=== PATIENT | female | born 1975 | race Caucasian/White ===

== ENCOUNTER 2016-10-31 14:38 | Emergency (ER) | payer OTHER ==
[2016-10-31] MEDS ORDERED: NS 0.9% 1000 ML* 2,000 ML IV ONE (16:25)
[2016-10-31] MEDS ORDERED: Aspirin Low Dose CHEW TAB* 81 MG PO ONE (16:25)
--- NOTE | 2016-10-31 17:07 | RAD ---
Indication: Chest pain. 2 views of the chest demonstrate no mediastinal shift. Heart is of normal size and configuration. Lung fitch demonstrate no pleural fluid, pneumonia or pneumothorax. IMPRESSION: No active cardiopulmonary disease is noted.
[2016-10-31 17:19] LABS: Urine Bilirubin Negative (Negative); Urine Glucose Negative (Negative); Urine Nitrite Negative (Negative)
[2016-10-31 17:26] VITALS: BP 157/94
[2016-10-31 17:26] LABS: Hematocrit 47 % (35-47); Hemoglobin 15.7 g/dl (12.0-16.0); Mean Corpuscular HGB Conc 33 g/dl (31-36); Mean Corpuscular Hemoglobin 28 pg (27-31); Mean Corpuscular Volume 85 fL (80-97); Mean Platelet Volume 8 um3 (7.4-10.4); Red Blood Count 5.54 10^6/ul (4.0-5.4); Red Cell Distribution Width 14 % (10.5-15); White Blood Count 8.9 10^3/ul (3.5-10.8)
[2016-10-31 17:42] LABS: ALT 24 U/L (7-52); AST 28 U/L (13-39); Albumin 4.9 g/dL (3.2-5.2); Alkaline Phosphatase 71 U/L (34-104); Anion Gap 8 mmol/L (2-11); BUN/Creatinine Ratio 19.7 (8-20); Blood Urea Nitrogen 14 mg/dL (6-24); C Reactive Protein 6.24 mg/L (< 5.00); CO2 Carbon Dioxide 29 mmol/L (22-32); Calcium 10.3 mg/dL (8.6-10.3); Chloride 100 mmol/L (101-111); Creatine Kinase 143 U/L (10-223); EGFR African American 116.1 (>60); EGFR Non-African American 90.3 (>60); Globulin 3.3 g/dL (2-4); Glucose 83 mg/dL (70-100); Lipase 21 U/L (11.0-82.0); Potassium 3.6 mmol/L (3.5-5.0); Sodium 137 mmol/L (133-145); Total Protein 8.2 g/dL (6.4-8.9)
--- NOTE | 2016-10-31 17:54 | RAD ---
Indication: Headache. Comparison: May 22, 2016 CT. Technique: Noncontrast CT vertex of skull through foramen magnum. Report: The sulci, ventricles, and basal cisterns are normal for age. Espinosa matter white matter differentiation is preserved without evidence for edema. No intra or extra axial hemorrhage, mass, or fluid collection detected. Unremarkable visualized orbital contents. Unremarkable calvarium and skull base. Unremarkable scalp. The visualized paranasal sinuses and mastoid air spaces are clear. IMPRESSION: Negative unenhanced head CT.
[2016-10-31 18:10] LABS: TSH (Thyroid Stimulating Horm) 3.07 mcIU/mL (0.34-5.60)
--- NOTE | 2016-10-31 18:52 | ED ---
Lenard Villeda Karl, scribed for Aurelio Guerrero MD on 10/31/16 at 1645 . HPI Chest Pain - HPI Summary HPI Summary: Pt is a 41 y/o female that presents to the ED c/o CP. Pt reported that she has had a MONTGOMERY for the past 4 days and last night began having CP that went away but it returned during work this morning. Pt stated that her pain is a sharp pain in her left anterior chest and radiates through to her back, rating it as a 7/ 10 at its worst and a 3/10 currently. Pt also reported mild SOB and nausea, and that her pain is aggravated by stress. Pt also stated that she has been experiencing frequent urination since this morning and that she started Lipitor 3 days ago. Pt denied dysuria, diaphoresis, leg pain, wheezing, fever, chills, generalized myalgia, cough, and abd pain. Hx: GERD, HTN, HLD, former smoker ( stopped on 10/14/16). - History of Current Complaint Chief Complaint: EDChestWallPain Time Seen by Provider: 10/31/16 16:14 Hx Obtained From: Patient Onset/Duration: Started Minutes Ago Timing: Intermittent, Lasting Hours Initial Severity: Moderate Current Severity: Moderate Pain Intensity: 6 - CP Pain Scale Used: 0-10 Numeric Chest Pain Location: Left Anterior Chest Pain Radiates: Yes Chest Pain Radiates To:: Back Character: Sharp/Stabbing Aggravating Factor(s): Other: - stress Alleviating Factor(s): Nothing Associated Signs and Symptoms: Positive: Chest Pain, Headaches, Shortness of Breath, Nausea, Back Pain, Other: - frequent urination. Negative: Fever, Chills , Diaphoresis, Cough, Calf Pain/Swelling, Wheezing - Allergy/Home Medications Allergies/Adverse Reactions: Allergies Allergy/AdvReac Type Severity Reaction Status Date / Time Methotrexate Allergy Hives Verified 09/12/16 16:41 walnuts Allergy Blisters Uncoded 09/12/16 16:41 in Mouth PMH/Surg Hx/FS Hx/Imm Hx Endocrine/Hematology History: Denies: Hx Anticoagulant Therapy, Hx Diabetes, Hx Thyroid Disease Cardiovascular History: Reports: Hx Hypertension Denies: Hx Congestive Heart Failure, Hx Deep Vein Thrombosis, Hx Myocardial Infarction, Hx Pacemaker/ICD Respiratory History: Reports: Hx Asthma - Has used albuterol in the past. Denies: Hx Chronic Obstructive Pulmonary Disease (COPD), Hx Lung Cancer, Hx Pneumonia, Hx Pulmonary Embolism GI History: Denies: Hx Gall Bladder Disease, Hx Gastrointestinal Bleed, Hx Ulcer, Hx Urosepsis History: Denies: Hx Kidney Stones, Hx Renal Disease Neurological History: Reports: Hx Migraine - She is not on any medications for this. Denies: Hx Dementia, Hx Seizures, Hx Transient Ischemic Attacks (TIA) Psychiatric History: Reports: Hx Depression - No on medications at this time. Denies: Hx Anxiety, Hx Schizophrenia, Hx Bipolar Disorder - Surgical History Surgery Procedure, Year, and Place: Uterine Polypectomies, 2010, [facility]. Uterine Polypectomies, 04/20/13, [facility] Infectious Disease History: No Infectious Disease History: Reports: Hx Shingles Denies: Hx Clostridium Difficile, Hx Hepatitis, Hx Human Immunodeficiency Virus (HIV), Hx of Known/Suspected MRSA, Hx Tuberculosis, Hx Known/Suspected VRE , Hx Known/Suspected VRSA, History Other Infectious Disease, Traveled Outside the [place] in Last 30 Days - Family History Known Family History: Positive: Cardiac Disease - mother, Hypertension - mother - Social History Alcohol Use: Rare Substance Use Type: Reports: Marijuana Substance Use Comment - Amount & Last Used: 2 days Smoking Status (MU): Former Smoker - pt quit smoking on 10/14/16 Type: Cigarettes Amount Used/How Often: 5 cigs daily Length of Time of Smoking/Using Tobacco: APPROX 23 YRS Have You Smoked in the Last Year: Yes Review of Systems Negative: Fever, Chills, Skin Diaphoresis Eyes: Negative ENT: Negative Positive: Chest Pain Positive: Shortness Of Breath. Negative: Cough Positive: Nausea. Negative: Abdominal Pain Positive: frequency Negative: Myalgia Skin: Negative Positive: Headache Psychological: Normal All Other Systems Reviewed And Are Negative: Yes Physical Exam Triage Information Reviewed: Yes Vital Signs On Initial Exam: Initial Vitals Temp Pulse Resp BP Pulse Ox 98.4 F 69 16 142/90 99 10/31/16 14:44 10/31/16 14:44 10/31/16 14:44 10/31/16 14:44 10/31/16 14:44 Vital Signs Reviewed: Yes Appearance: Positive: Well-Appearing, No Pain Distress Skin: Positive: Warm, Skin Color Reflects Adequate Perfusion, Dry Head/Face: Positive: Normal Head/Face Inspection Eyes: Positive: EOMI, LUBNA ENT: Positive: Normal ENT inspection Neck: Positive: Supple, Nontender Respiratory/Lung Sounds: Positive: Clear to Auscultation, Breath Sounds Present Cardiovascular: Positive: RRR Abdomen Description: Positive: Nontender, Soft Bowel Sounds: Positive: Present Musculoskeletal: Positive: Normal, Strength/ROM Intact Neurological: Positive: Normal, Sensory/Motor Intact, Alert, Oriented to Person Place, Time Psychiatric: Positive: Affect/Mood Appropriate Diagnostics - Vital Signs Vital Signs Temp Pulse Resp BP Pulse Ox 10/31/16 14:44 98.4 F 69 16 142/90 99 - Laboratory Lab Results: Lab Results 10/31/16 10/31/16 10/31/16 Range/Units 15:10 15:10 15:10 WBC 8.9 (3.5-10.8) 10^3/ul RBC 5.54 H (4.0-5.4) 10^6/ul Hgb 15.7 (12.0-16.0) g/dl Hct 47 (35-47) % MCV 85 (80-97) fL MCH 28 (27-31) pg MCHC 33 (31-36) g/dl RDW 14 (10.5-15) % Plt Count 301 (150-450) 10^3/ul MPV 8 (7.4-10.4) um3 Neut % (Auto) 59.0 (38-83) % Lymph % (Auto) 30.8 (25-47) % Loup % (Auto) 6.1 (1-9) % Eos % (Auto) 1.8 (0-6) % Baso % (Auto) 2.3 H (0-2) % Absolute Neuts (auto) 5.3 (1.5-7.7) 10^3/ul Absolute Lymphs (auto) 2.7 (1.0-4.8) 10^3/ul Absolute Monos (auto) 0.5 (0-0.8) 10^3/ul Absolute Eos (auto) 0.2 (0-0.6) 10^3/ul Absolute Basos (auto) 0.2 (0-0.2) 10^3/ul Absolute Nucleated RBC 0.01 10^3/ul Nucleated RBC % 0.1 INR (Anticoag Therapy) 0.89 (0.89-1.11) APTT 33.7 (26.0-36.3) seconds D-Dimer, Quantitative < 200 (Less Than 230) ng/mL Sodium 137 (133-145) mmol/L Potassium 3.6 (3.5-5.0) mmol/L Chloride 100 L (101-111) mmol/L Carbon Dioxide 29 (22-32) mmol/L Anion Gap 8 (2-11) mmol/L BUN 14 (6-24) mg/dL Creatinine 0.71 (0.51-0.95) mg/dL Est GFR ( Amer) 116.1 (>60) Est GFR (Non-Af Amer) 90.3 (>60) BUN/Creatinine Ratio 19.7 (8-20) Glucose 83 (70-100) mg/dL Lactic Acid (0.5-2.0) mmol/L Calcium 10.3 (8.6-10.3) mg/dL Magnesium 2.0 (1.9-2.7) mg/dL Total Bilirubin 0.60 (0.2-1.0) mg/dL AST 28 (13-39) U/L ALT 24 (7-52) U/L Alkaline Phosphatase 71 (34-104) U/L Total Creatine Kinase 143 (10-223) U/L CK-MB (CK-2) 3.8 (0.6-6.3) ng/mL Troponin I 0.00 (<0.04) ng/mL C-Reactive Protein 6.24 H (< 5.00) mg/L Total Protein 8.2 (6.4-8.9) g/dL Albumin 4.9 (3.2-5.2) g/dL Globulin 3.3 (2-4) g/dL Albumin/Globulin Ratio 1.5 (1-3) Lipase 21 (11.0-82.0) U/L TSH 3.07 (0.34-5.60) mcIU/mL Beta HCG, Quant < 0.60 mIU/mL Urine Color Urine Appearance Urine pH (5-9) Ur Specific Bicknell (1.010-1.030) Urine Protein (Negative) Urine Ketones (Negative) Urine Blood (Negative) Urine Nitrate (Negative) Urine Bilirubin (Negative) Urine Urobilinogen (Negative) Ur Leukocyte Esterase (Negative) Urine Glucose (Negative) 10/31/16 10/31/16 Range/Units 15:10 17:00 WBC (3.5-10.8) 10^3/ul RBC (4.0-5.4) 10^6/ul Hgb (12.0-16.0) g/dl Hct (35-47) % MCV (80-97) fL MCH (27-31) pg MCHC (31-36) g/dl RDW (10.5-15) % Plt Count (150-450) 10^3/ul MPV (7.4-10.4) um3 Neut % (Auto) (38-83) % Lymph % (Auto) (25-47) % Loup % (Auto) (1-9) % Eos % (Auto) (0-6) % Baso % (Auto) (0-2) % Absolute Neuts (auto) (1.5-7.7) 10^3/ul Absolute Lymphs (auto) (1.0-4.8) 10^3/ul Absolute Monos (auto) (0-0.8) 10^3/ul Absolute Eos (auto) (0-0.6) 10^3/ul Absolute Basos (auto) (0-0.2) 10^3/ul Absolute Nucleated RBC 10^3/ul Nucleated RBC % INR (Anticoag Therapy) (0.89-1.11) APTT (26.0-36.3) seconds D-Dimer, Quantitative (Less Than 230) ng/mL Sodium (133-145) mmol/L Potassium (3.5-5.0) mmol/L Chloride (101-111) mmol/L Carbon Dioxide (22-32) mmol/L Anion Gap (2-11) mmol/L BUN (6-24) mg/dL Creatinine (0.51-0.95) mg/dL Est GFR ( Amer) (>60) Est GFR (Non-Af Amer) (>60) BUN/Creatinine Ratio (8-20) Glucose (70-100) mg/dL Lactic Acid 1.1 (0.5-2.0) mmol/L Calcium (8.6-10.3) mg/dL Magnesium (1.9-2.7) mg/dL Total Bilirubin (0.2-1.0) mg/dL AST (13-39) U/L ALT (7-52) U/L Alkaline Phosphatase (34-104) U/L Total Creatine Kinase (10-223) U/L CK-MB (CK-2) (0.6-6.3) ng/mL Troponin I (<0.04) ng/mL C-Reactive Protein (< 5.00) mg/L Total Protein (6.4-8.9) g/dL Albumin (3.2-5.2) g/dL Globulin (2-4) g/dL Albumin/Globulin Ratio (1-3) Lipase (11.0-82.0) U/L TSH (0.34-5.60) mcIU/mL Beta HCG, Quant mIU/mL Urine Color Straw Urine Appearance Clear Urine pH 6.0 (5-9) Ur Specific Bicknell 1.003 L (1.010-1.030) Urine Protein Negative (Negative) Urine Ketones Negative (Negative) Urine Blood Negative (Negative) Urine Nitrate Negative (Negative) Urine Bilirubin Negative (Negative) Urine Urobilinogen Negative (Negative) Ur Leukocyte Esterase Negative (Negative) Urine Glucose Negative (Negative) Result Diagrams: 10/31/16 15:10 10/31/16 15:10 Lab Statement: Any lab studies that have been ordered have been reviewed, and results considered in the medical decision making process. - Radiology CXR Xray Interpretation: No Acute Changes Radiology Interpretation Completed By: Radiologist - IMPRESSION: No active cardiopulmonary disease is noted. - CT CT Brain CT Interpretation: No Acute Changes CT Interpretation Completed By: Radiologist - IMPRESSION: Negative unenhanced head CT. - EKG 14:41 Cardiac Rate: NL - at 69 bpm EKG Rhythm: Sinus Rhythm ST Segment: Normal Ectopy: None Chest Pain Course/Dx - Course Assessment/Plan: DISCUSSED RESULTS WITH PATIENT. PATIENT DECLINED FURTHER TREATMENT OF HEADACHE, WISHES TO GO HOME. WILL F/U WITH PMD. DISCHARGE HOME STABLE. - Diagnoses Provider Diagnoses: Chest pain, Headache, Urinary frequency Discharge - Discharge Plan Condition: Stable Disposition: HOME Patient Education Materials: Chest Pain (ED), General Headache (ED) Referrals: Berta Flynn MD [Primary Care Provider] - Additional Instructions: FOLLOW UP WITH YOUR DOCTOR. RETURN TO THE EMERGENCY DEPARTMENT FOR ANY WORSENING OF YOUR CONDITION; PAIN, SHORTNESS OF BREATH, WEAKNESS, NUMBNESS, YOU FEEL ILL OR QUESTIONS OR CONCERNS. The documentation as recorded by the Lenard abraham Karl accurately reflects the service I personally performed and the decisions made by me, Aurelio Guerrero MD.
== END 2016-10-31 19:04 | disposition home or self-care (01) ==
LOC: ED 14:38
DX: R07.9 Chest pain, unspecified (principal); R51 Headache; R35.0 Frequency of micturition; K21.9 Gastro-esophageal reflux disease without esophagitis; E78.5 Hyperlipidemia, unspecified; Z87.891 Personal history of nicotine dependence
CPT/HCPCS: 36415; 70450; 71020; 80053; 81003; 82550; 82553; 83605; 83690; 83735; 84443; 84484; 84702; 85025; 85379; 85610; 85730; 86140; 93005; 99283

== ENCOUNTER 2017-03-20 11:40 | Emergency (ER) | payer SELFPAY ==
[2017-03-20 12:15] VITALS: BP 176/106
[2017-03-20] MEDS ORDERED: Tetan/Diph/Pertus SYR(Tdap)* 0.5 ML SYR(BOOSTRIX) use SYR IM ONE (12:21)
--- NOTE | 2017-03-20 12:58 | UC ---
Laceration HPI - HPI Summary HPI Summary: The patient comes in today for: 1. Left thumb laceration: Onset: 2 hours ago. Palliative/provocative: Touch makes it worse--painful. Quality: Ache, throbbing. Region: Left thumb. Severity: 10 Time: Constant. Associated symptoms: Event: She was cutting green peppers and cut the end of her left thumb. Tetanus: 2004. LMP: last month about the 12th. * - History Of Current Complaint Chief Complaint: UCLaceration Stated Complaint: FINGER LAC Time Seen by Provider: 03/20/17 12:12 Hx Obtained From: Patient - Allergies/Home Medications Allergies/Adverse Reactions: Allergies Allergy/AdvReac Type Severity Reaction Status Date / Time Methotrexate Allergy Hives Verified 03/20/17 12:09 walnuts Allergy Blisters Uncoded 03/20/17 12:09 in Mouth Home Medications: Home Medications Green Coffee Lange-Yerba Mate [Green Coffee Lange Extract 133.333-40 mg] 1 cap PO DAILY 03/20/17 [History Confirmed 03/20/17] Multivitamins/Minerals TAB* [Thera M Plus TAB*] 1 tab PO DAILY 03/20/17 [ History Confirmed 03/20/17] Ropinirole TAB* [Requip TAB*] 0.5 mg PO BEDTIME 03/20/17 [History Confirmed 06/28] PMH/Surg Hx/FS Hx/Imm Hx Previously Healthy: No - Restless legs syndrome. Cardiovascular History: Hypertension Other History Of: Negative For: HIV, Hepatitis B, Hepatitis C, Anticoagulant Therapy - Surgical History Surgical History: Yes Surgery Procedure, Year, and Place: Uterine Polypectomies, 2010, [facility]. Uterine Polypectomies, 04/20/13, [facility] - Family History Known Family History: Positive: Cardiac Disease - mother, Hypertension - mother - Social History Occupation: Employed Full-time Alcohol Use: Rare Substance Use Type: Marijuana Substance Use Comment - Amount & Last Used: 2 days Smoking Status (MU): Former Smoker Type: Cigarettes Amount Used/How Often: ~1/2 PPD Length of Time of Smoking/Using Tobacco: 25 Years Have You Smoked in the Last Year: Yes When Did the Patient Quit Smoking/Using Tobacco: 10/14/16 Household Exposure Type: Cigarettes - Immunization History Most Recent Influenza Vaccination: Not the Season Most Recent Tetanus Shot: 11/14/04 Review of Systems Constitutional: Negative Skin: Negative Eyes: Negative ENT: Negative Respiratory: Negative Cardiovascular: Negative Gastrointestinal: Negative Genitourinary: Negative All Other Systems Reviewed And Are Negative: Yes Physical Exam Triage Information Reviewed: Yes Appearance: Well-Appearing, No Pain Distress, Well-Nourished Vital Signs: Initial Vital Signs Temp 98.8 F 03/20/17 12:08 Pulse 74 03/20/17 12:08 Resp 16 03/20/17 12:08 BP 176/106 03/20/17 12:08 Pulse Ox 100 03/20/17 12:08 Vital Signs Reviewed: Yes Eyes: Positive: Conjunctiva Clear. Negative: Discharge ENT: Positive: Hearing grossly normal. Negative: Pharyngeal erythema, Nasal congestion, Nasal drainage, TM bulging, TM dull, TM red, Tonsillar swelling, Tonsillar exudate Dental: Negative: Gross Decay/Caries @, Dental Fracture @ Neck: Positive: Supple, Nontender, No Lymphadenopathy. Negative: Nuchal Rigidity Respiratory: Positive: Chest non-tender, Lungs clear, No respiratory distress. Negative: Rhonchi, Wheezing Cardiovascular: Positive: RRR, No Murmur Abdomen Description: Positive: Nontender, No Organomegaly, Soft. Negative: Distended, Guarding Musculoskeletal: Positive: Strength Intact, ROM Intact, No Edema Neurological: Positive: Alert, Muscle Tone Normal Psychological: Positive: Age Appropriate Behavior, Consolable Skin: Positive: Other - Laceration to the left thumb. Laceration Repair - Laceration Repair 1 Laceration Size After Repair: Length (cm) - 1, Width (mm) - 3, Depth (mm) - 3 Modified For Repair: No Anesthesia Used: 2.0% Lido Cleansing Completed Via Routine Prep: Yes Irrigation With Pressure Irrigation Device: Yes Closure Material: Sutures - Four 5-0 nylon sutures. Closure Method: Single Layer Suture Of: Skin Suture Type: Nylon Laceration Course/Dx - Differential Dx - Laceration/Wound Provider Diagnoses: Tangential skin laceration of the left thumb. Discharge - Discharge Plan Condition: Stable Disposition: HOME Patient Education Materials: Laceration (ED), Care For Your Stitches (ED) Referrals: Berta Flynn MD [Primary Care Provider] - 2 Weeks Additional Instructions: Please keep your thumb elevated and apply cold compresses to the area. Take [id number] pain medication as needed. If this does not meet your needs, you may use the hydrocodone.
[2017-03-20] MEDS ORDERED: Lidocaine 2% 10 ML* VIAL INJ ONE (13:01)
[2017-03-20] MEDS ORDERED: Lidocaine 2% PF * 5 ML VIAL ONE (13:10)
== END 2017-03-20 13:59 | disposition home or self-care (01) ==
LOC: UCCORT 11:40
DX: S61.012A Laceration without foreign body of left thumb without damage to nail, initial encounter (principal); I10 Essential (primary) hypertension; W45.8XXA Other foreign body or object entering through skin, initial encounter; Y93.G1 Activity, food preparation and clean up; Y92.9 Unspecified place or not applicable
CPT/HCPCS: 12002; 90471; 90715; 99212; G0463; J2001

== ENCOUNTER 2017-08-03 19:40 | Emergency (ER) | payer OTHER ==
[2017-08-03 20:47] VITALS: BP 154/101
[2017-08-03] MEDS ORDERED: Doxycycline (NF) 100 MG TAB PO ONE ×2 (21:27→21:39)
--- NOTE | 2017-08-03 21:39 | ED ---
Throat Pain/Nasal Congestion - HPI Summary HPI Summary: 41 yr old with maxillary and frontal sinus pressure, worse on right than the left. Symptoms began a few days ago with sore throat, runny nose. Now she feels all full and plugged up in her sinuses. Pain is moderate. She has chronic hypertension. She has had prior sinus infections. Denies change in vision speech, hearing, No focal weakness or dizziness. - History of Current Complaint Chief Complaint: UCGeneralIllness Time Seen by Provider: 08/03/17 21:20 - Allergies/Home Medications Allergies/Adverse Reactions: Allergies Allergy/AdvReac Type Severity Reaction Status Date / Time Methotrexate Allergy Hives Verified 08/03/17 20:47 walnuts Allergy Blisters Uncoded 08/03/17 20:47 in Mouth Home Medications: Home Medications Gabapentin CAP(*) [Neurontin 300 CAP(*)] 300 mg PO BID 08/03/17 [History Confirmed 08/03/17] Norethindr/Eth Estradiol(Nf) [Lo Loestrin Fe (NF)] 1 tab PO 08/03/17 [History] PMH/Surg Hx/FS Hx/Imm Hx Endocrine/Hematology History: Denies: Hx Anticoagulant Therapy, Hx Diabetes, Hx Thyroid Disease Cardiovascular History: Reports: Hx Hypertension Denies: Hx Congestive Heart Failure, Hx Deep Vein Thrombosis, Hx Myocardial Infarction, Hx Pacemaker/ICD Respiratory History: Reports: Hx Asthma Denies: Hx Chronic Obstructive Pulmonary Disease (COPD), Hx Lung Cancer, Hx Pneumonia, Hx Pulmonary Embolism GI History: Denies: Hx Gall Bladder Disease, Hx Gastrointestinal Bleed, Hx Ulcer, Hx Urosepsis History: Denies: Hx Kidney Stones, Hx Renal Disease Neurological History: Reports: Hx Migraine - She is not on any medications for this. Denies: Hx Dementia, Hx Seizures, Hx Transient Ischemic Attacks (TIA) Psychiatric History: Reports: Hx Depression - No on medications at this time. Denies: Hx Anxiety, Hx Schizophrenia, Hx Bipolar Disorder - Surgical History Surgery Procedure, Year, and Place: Uterine Polypectomies, 2010, [facility]. Uterine Polypectomies, 04/20/13, [facility] Infectious Disease History: Yes Infectious Disease History: Reports: Hx Shingles Denies: Hx Clostridium Difficile, Hx Hepatitis, Hx Human Immunodeficiency Virus (HIV), Hx of Known/Suspected MRSA, Hx Tuberculosis, Hx Known/Suspected VRE , Hx Known/Suspected VRSA, History Other Infectious Disease, Traveled Outside the [place] in Last 30 Days - Family History Known Family History: Positive: Cardiac Disease - mother, Hypertension - mother - Social History Alcohol Use: Rare Substance Use Type: Reports: Marijuana Substance Use Comment - Amount & Last Used: 2 days Smoking Status (MU): Former Smoker Type: Cigarettes Amount Used/How Often: ~1/2 PPD Length of Time of Smoking/Using Tobacco: 25 Years Have You Smoked in the Last Year: Yes Review of Systems Constitutional: Negative Eyes: Negative Positive: Sore Throat, Nasal Discharge, Other - sinus pressure Cardiovascular: Negative Respiratory: Negative Genitourinary: Negative Musculoskeletal: Negative All Other Systems Reviewed And Are Negative: Yes Physical Exam Triage Information Reviewed: Yes Vital Signs On Initial Exam: Initial Vitals Temp Pulse Resp BP Pulse Ox 98.5 F 89 18 154/101 100 08/03/17 20:43 08/03/17 20:43 08/03/17 20:43 08/03/17 20:43 08/03/17 20:43 Vital Signs Reviewed: Yes Appearance: Positive: Well-Appearing, No Pain Distress Skin: Positive: Warm, Skin Color Reflects Adequate Perfusion Head/Face: Positive: Normal Head/Face Inspection ENT: Positive: Normal ENT inspection, Other - she has frontal and maxillary sinus tenderness Neck: Positive: Nontender Respiratory/Lung Sounds: Positive: Clear to Auscultation, Breath Sounds Present Cardiovascular: Positive: RRR. Negative: Murmur Abdomen Description: Positive: Nontender Musculoskeletal: Positive: Strength/ROM Intact Neurological: Positive: Sensory/Motor Intact, Alert, Oriented to Person Place, Time, CN Intact II-III, Normal Gait - Mobile Coma Scale Best Eye Response: 4 - Spontaneous Best Motor Response: 6 - Obeys Commands Best Verbal Response: 5 - Oriented Diagnostics - Vital Signs Vital Signs Temp Pulse Resp BP Pulse Ox 08/03/17 20:43 98.5 F 89 18 154/101 100 - Laboratory Lab Statement: Any lab studies that have been ordered have been reviewed, and results considered in the medical decision making process. EENT Course/Dx - Course Course Of Treatment: 41 yr old with sinus infection. She does not want augmentin as she states it make her feel funny. She wants doxycycline. She is aware it can affect OCP. She states there is no chance she is . - Diagnoses Provider Diagnoses: Sinusitis Discharge - Discharge Plan Condition: Good Disposition: HOME Prescriptions: Doxycycline (Monohydrate) [Doxycycline Monohydrate] 100 mg PO BID #20 cap Patient Education Materials: Sinusitis (ED), Hypertension (ED) Referrals: Berta Flynn MD [Primary Care Provider] - 2 Days
[2017-08-03] MEDS ORDERED: DOXYcycline CAP(*) 100 MG PO ONE (21:43)
== END 2017-08-03 21:53 | disposition home or self-care (01) ==
LOC: UCCORT 19:40
DX: J32.9 Chronic sinusitis, unspecified (principal); I10 Essential (primary) hypertension; J45.909 Unspecified asthma, uncomplicated; G43.909 Migraine, unspecified, not intractable, without status migrainosus; F32.9 Major depressive disorder, single episode, unspecified; F12.90 Cannabis use, unspecified, uncomplicated; Z87.891 Personal history of nicotine dependence
CPT/HCPCS: 99212; A9270-GY; G0463

== ENCOUNTER 2018-04-08 15:58 | Emergency (ER) | payer OTHER ==
[2018-04-08 16:29] VITALS: BP 135/97
--- NOTE | 2018-04-08 17:40 | UC ---
UC General HPI - HPI Summary HPI Summary: History of fibromyalgia, with 2 to 3 week hx of diffuse right hip pain, sometimes to the side, sometimes to the buttock, sometimes has knee pain. Some morning stiffness, difficulty with stairs. Today has diffuse whole body ache, headache across the forehead, no photophobia. No fever, joint effusions, rashes, eye changes, bowel changes or neuro symptoms. Hx of bite on right posterior thigh about 6 weeks ago, uncertain what it was, recalls erythema. No persistent findings. - History of Current Complaint Chief Complaint: UCGeneralIllness Stated Complaint: ACHES, MONTGOMERY, NAUSEA Time Seen by Provider: 04/08/18 16:42 Hx Obtained From: Patient Hx Last Menstrual Period: 03/17/18 Onset/Duration: Gradual Onset, Lasting Weeks - 2-3 Onset Severity: Mild Current Severity: Moderate Pain Intensity: 7 Pain Location at: whole body Character: aching. Associated Signs & Symptoms: Positive: Weakness - Allergy/Home Medications Allergies/Adverse Reactions: Allergies Allergy/AdvReac Type Severity Reaction Status Date / Time methotrexate Allergy Hives Verified 04/08/18 16:19 walnuts Allergy Blisters Uncoded 04/08/18 16:19 in Mouth Home Medications: Home Medications Docusate Sodium [Colace] 100 mg PO DAILY 04/08/18 [History Confirmed 04/08/18] Escitalopram (NF) [Lexapro 10 mg (NF)] 10 mg PO DAILY 04/08/18 [History Confirmed 04/08/18] Levothyroxine TAB* [Synthroid TAB*] 25 mcg PO DAILY 04/08/18 [History Confirmed 04/08/18] Omeprazole CAP* [Prilosec CAP* 20 MG] 40 mg PO DAILY 04/08/18 [History Confirmed 04/08/18] PMH/Surg Hx/FS Hx/Imm Hx Endocrine History: Hypothyroidism Cardiovascular History: Hypertension Psychological History: Anxiety Other History Of: Negative For: HIV, Hepatitis B, Hepatitis C, Anticoagulant Therapy - Surgical History Surgical History: Yes Surgery Procedure, Year, and Place: Uterine Polypectomies, 2010, [facility]. Uterine Polypectomies, 04/20/13, [facility] - Family History Known Family History: Positive: Cardiac Disease - mother, Hypertension - mother - Social History Occupation: Employed Full-time - works in a [employer] shop Lives: With Family Alcohol Use: Occasionally Substance Use Type: Marijuana Substance Use Comment - Amount & Last Used: 3 times weekly- last used 3 days ago Smoking Status (MU): Former Smoker Type: Cigarettes Amount Used/How Often: ~1/2 PPD Length of Time of Smoking/Using Tobacco: 1 1/2Years Have You Smoked in the Last Year: Yes When Did the Patient Quit Smoking/Using Tobacco: 10/14/16 Household Exposure Type: Cigarettes - Immunization History Most Recent Influenza Vaccination: Not the Season Most Recent Tetanus Shot: 11/14/04 Review of Systems Constitutional: Fatigue Musculoskeletal: Arthralgia, Myalgia Neurological: Headache Is Patient Immunocompromised?: No All Other Systems Reviewed And Are Negative: Yes Physical Exam Triage Information Reviewed: Yes Appearance: Ill-Appearing - looks fatigued and uncomfortable, Pain Distress - mild Vital Signs: Initial Vital Signs Temp 98.5 F 04/08/18 16:22 Pulse 79 04/08/18 16:22 Resp 16 04/08/18 16:22 BP 135/97 04/08/18 16:22 Pulse Ox 100 04/08/18 16:22 Eyes: Positive: Conjunctiva Clear ENT: Positive: Pharynx normal, TMs normal Neck: Positive: Supple, Nontender, No Lymphadenopathy Respiratory: Positive: Lungs clear, Normal breath sounds Cardiovascular: Positive: RRR, No Murmur Abdomen Description: Positive: Nontender, No Organomegaly, Soft Musculoskeletal: Positive: Strength Intact, ROM Intact - full rom in right hip, with discomfort with flexion and IR., No Edema, Other: - right knee with full rom, no effusion, no warmth. Neurological: Positive: Alert, Muscle Tone Normal Skin Exam: Normal Skin: Negative: rashes Course/Dx - Course Course Of Treatment: begin ibuprofen 600mg tid; labs ordered. - Differential Dx - Multi-Symptom Provider Diagnoses: possible viral illness, rule out Lyme disease, hx fibromyalgia Discharge - Sign-Out/Discharge Documenting (check all that apply): Discharge/Admit/Transfer - Discharge Plan Condition: Stable Disposition: HOME Patient Education Materials: Viral Syndrome (ED) Forms: *Work Release Referrals: Berta Flynn MD [Primary Care Provider] - Additional Instructions: Your symptoms and findings suggest a viral illness. Lab work was ordered to [facility] for Lyme disease and inflammatory arthritis. The Lyme testing will take about 5 days before it is reported, other labs will be available tomorrow. Follow up with Dr. Flynn next week. Begin ibuprofen 600mg three times daily for relief of symptoms. Off work through Thursday due to symptoms and fatigue. - Billing Disposition and Condition Condition: STABLE Disposition: Home
[2018-04-08 19:56] LABS: ABS Basophils 0.1 10^3/ul (0-0.2); ABS Eosinophils 0.2 10^3/ul (0-0.6); ABS Lymphocytes 1.9 10^3/ul (1.0-4.8); ABS Monocytes 0.5 10^3/ul (0-0.8); ABS Neutrophils 4.4 10^3/ul (1.5-7.7); ABS Nucleated RBC 0 10^3/ul; Eosinophil % 3.1 % (0-6); Hematocrit 42 % (35-47); Hemoglobin 14.4 g/dl (12.0-16.0); Lymphocyte % 26.6 % (25-47); Mean Corpuscular HGB Conc 34 g/dl (31-36); Mean Corpuscular Hemoglobin 29 pg (27-31); Mean Corpuscular Volume 87 fL (80-97); Mean Platelet Volume 8.8 um3 (7.4-10.4); Nucleated Red Blood Cells % 0.2; Platelet Count 319 10^3/ul (150-450); Red Cell Distribution Width 14 % (10.5-15)
[2018-04-08 20:15] LABS: EGFR Non-African American 83.1 (>60)
--- NOTE | 2018-04-09 08:39 | UC ---
- Progress Note Progress Note: CBC, CMP, CRP reviewed mild increased lft and crp no change in management josep 04/09/2018 Discharge - Sign-Out/Discharge Documenting (check all that apply): Post-Discharge Follow Up - Discharge Plan Condition: Stable Disposition: HOME Patient Education Materials: Viral Syndrome (ED) Forms: *Work Release Referrals: Berta Flynn MD [Primary Care Provider] - Additional Instructions: Your symptoms and findings suggest a viral illness. Lab work was ordered to [facility] for Lyme disease and inflammatory arthritis. The Lyme testing will take about 5 days before it is reported, other labs will be available tomorrow. Follow up with Dr. Flynn next week. Begin ibuprofen 600mg three times daily for relief of symptoms. Off work through Thursday due to symptoms and fatigue. - Billing Disposition and Condition Condition: STABLE Disposition: Home
--- NOTE | 2018-04-11 07:06 | UC ---
- Progress Note Progress Note: lyme dx - neg no change ljj 04/11/18 Discharge - Sign-Out/Discharge Documenting (check all that apply): Post-Discharge Follow Up - Discharge Plan Condition: Stable Disposition: HOME Patient Education Materials: Viral Syndrome (ED) Forms: *Work Release Referrals: Berta Flynn MD [Primary Care Provider] - Additional Instructions: Your symptoms and findings suggest a viral illness. Lab work was ordered to [facility] for Lyme disease and inflammatory arthritis. The Lyme testing will take about 5 days before it is reported, other labs will be available tomorrow. Follow up with Dr. Flynn next week. Begin ibuprofen 600mg three times daily for relief of symptoms. Off work through Thursday due to symptoms and fatigue. - Billing Disposition and Condition Condition: STABLE Disposition: Home
== END 2018-04-08 18:02 | disposition home or self-care (01) ==
LOC: UCCORT 15:58
DX: R52 Pain, unspecified (principal); R51 Headache; R11.0 Nausea; Z88.8 Allergy status to other drugs, medicaments and biological substances; I10 Essential (primary) hypertension; E03.9 Hypothyroidism, unspecified; F41.9 Anxiety disorder, unspecified; Z87.891 Personal history of nicotine dependence
CPT/HCPCS: 36415; 80053; 82550; 85025; 86140; 86431; 86618; 99211; G0463

== ENCOUNTER 2019-01-07 09:32 | Emergency (ER) | payer OTHER ==
[2019-01-07 10:09] VITALS: BP 113/69
--- NOTE | 2019-01-07 11:16 | UC ---
Eye Complaint HPI - HPI Summary HPI Summary: 43 y/o female presents to the urgent care c/o left eye redness and sensitivity to light since Thursday01/04/2019. Pt reports a capillary vessel burst in her eye. She had a similar episode 5 years ago, but she thinks now is worse. She also has 2 small painful lumps, one in the left upper eyelid and the other in the RT lower eyelid since yesterday. She has applied cold compresses and natural tea w/o any improvement. She has also had Hx of styes in the past. Yesterday she went to [facility] and the bright lights triggered mild photophobia and B/L eye pressure. Pt has prescribed reading glasses, but she doesn't use them since she feels she doesn't need them. Pain is 2/10 dull like. Pt denies fever, diplopia, visual disturbances, MONTGOMERY, dizziness, SOB, chest pain, abdominal pain, N/V/d. - History of Current Complaint Chief Complaint: UCEye Stated Complaint: EYE COMPLAINT Time Seen by Provider: 01/07/19 11:11 Hx Obtained From: Patient Hx Last Menstrual Period: 01/07/19 ?: No Onset/Duration: Gradual Onset, Lasting Days - 3 days, Still Present, Worse Since - yesterday Timing: Constant Severity Initially: Mild Severity Currently: Severe Pain Intensity: 2 Pain Scale Used: 0-10 Numeric Location of Injury: Conjunctiva - left conjunctiva w/ a burst capillary vessel and left upper eyelid w/ a discrete painful lump and Rt lower eyelid w/ also a painful lump Character: Dull Aggravating Factor(s): Light, Blinking Alleviating Factor(s): Nothing Associated Signs And Symptoms: Positive: Photophobia - mild, worse yesterday. Negative: Drainage (Clear), Drainage (Purulent), Vision Impairment Bilateral, Fever, Swelling Related History: Diagnosed As: - subconjunctival hemorrage 5 years ago - Risk Factors Penetrating Injury Risk Factor: Negative Acute Glaucoma Risk Factors: Negative Optic Artery Occlusion Risk Factors: Negative - Allergies/Home Medications Allergies/Adverse Reactions: Allergies Allergy/AdvReac Type Severity Reaction Status Date / Time methotrexate Allergy Hives Verified 01/07/19 10:02 walnuts Allergy Blisters Uncoded 01/07/19 10:02 in Mouth Home Medications: Home Medications Rosuvastatin Calcium 20 mg PO DAILY 01/07/19 [History Confirmed 01/07/19] PMH/Surg Hx/FS Hx/Imm Hx Previously Healthy: Yes Endocrine History: Hypothyroidism, Dyslipidemia Cardiovascular History: Hypertension GI/ History: Gastroesophageal Reflux Psychological History: Depression Other History Of: Negative For: HIV, Hepatitis B, Hepatitis C, Anticoagulant Therapy - Surgical History Surgical History: Yes Surgery Procedure, Year, and Place: Uterine Polypectomies, 2010, [facility]. Uterine Polypectomies, 04/20/13, [facility]. tubes in ears - Family History Known Family History: Positive: Cardiac Disease - mother, Hypertension - mother - Social History Occupation: Employed Full-time Lives: With Family Alcohol Use: Daily Alcohol Amount: a few glasses of winde/ day Substance Use Type: Marijuana Substance Use Comment - Amount & Last Used: daily Smoking Status (MU): Former Smoker Type: Cigarettes Amount Used/How Often: ~1/2 PPD Length of Time of Smoking/Using Tobacco: 1 1/2Years Have You Smoked in the Last Year: Yes When Did the Patient Quit Smoking/Using Tobacco: 10/14/16 Household Exposure Type: Cigarettes - Immunization History Most Recent Influenza Vaccination: Not the 2015/2016 Season Most Recent Tetanus Shot: 11/14/04 Review of Systems All Other Systems Reviewed And Are Negative: Yes Constitutional: Positive: Negative Skin: Positive: Negative Eyes: Positive: Eye Redness - left conjunctiva w/ redness, Photophobia - mild, Other - painful discrete lumps in both eyes. Negative: Drainage ENT: Positive: Negative Respiratory: Positive: Negative Cardiovascular: Positive: Negative Gastrointestinal: Positive: Negative Genitourinary: Positive: Negative Motor: Positive: Negative Neurovascular: Positive: Negative Musculoskeletal: Positive: Negative Neurological: Positive: Negative Psychological: Positive: Negative Is Patient Immunocompromised?: No Physical Exam - Summary Physical Exam Summary: Vital Signs Reviewed: Yes General: Well appearing, well nourished female in no apparent pain distress Eyes: Positive: medial aspect ont he conjunctiva w/ a subconjuctival hemorrage, left conjunctiva clear. - Visual acuity: WNL,Visual fitch: full to confrontation.mild periorbital soft tissue swelling at the LF upper eyelid with erythema and discrete white small pustule in mid eyelid, tender to palpation. Similar one in the Rt lower mid eyelid. PERRLA, EOMI intact w/out limitation or complaint of pain. eyelashes clear. mild tearing and yellowish drainage observed. No ciliary flush. No chemosis, No photophobia. Normal fundoscopic exam; no proptosis, exophthalmos, nystagmus. ENT: Positive: Normal ENT inspection, Hearing grossly normal, Pharynx normal, Nasal congestion, Nasal drainage - clear, TMs normal - B/L external ear canal clear , TM's WNL. Negative: Tonsillar swelling, Tonsillar exudate Neck: Positive: Supple, Nontender, No Lymphadenopathy Respiratory: Positive: Chest nontender, Lungs clear, Normal breath sounds, No respiratory distress Cardiovascular: Positive: RRR, No Murmur, Pulses Normal, Brisk Capillary Refill Abdomen Description: Positive: Nontender, No Organomegaly, Soft. Negative: CVA Tenderness (R), CVA Tenderness (L) Bowel Sounds: Positive: Present Musculoskeletal: Positive: Strength Intact, ROM Intact, No Edema Neurological Exam: Normal Psychological Exam: Normal Skin Exam: Normal Triage Information Reviewed: Yes Vital Signs: Initial Vital Signs Temp 97.6 F 01/07/19 10:04 Pulse 67 01/07/19 10:04 Resp 16 01/07/19 10:04 BP 113/69 01/07/19 10:04 Pulse Ox 99 01/07/19 10:04 Eye Complaint Course/Dx - Course Course Of Treatment: 43 y/o female presents to the urgent care c/o left eye redness and sensitivity to light since Thursday01/04/2019. Pt reports a capillary vessel burst in her eye. She had a similar episode 5 years ago, but she thinks now is worse. She also has 2 small painful lumps, one in the left upper eyelid and the other in the RT lower eyelid since yesterday. She has applied cold compresses and natural tea w/o any improvement. She has also had Hx of styes in the past. Yesterday she went to [facility] and the bright lights triggered mild photophobia and B/L eye pressure. Pt has prescribed reading glasses, but she doesn't use them since she feels she doesn't need them. Pain is 2/10 dull like. Pt denies fever, diplopia, visual disturbances, MONTGOMERY, dizziness, SOB, chest pain, abdominal pain, N/V/d. Hx obtained. Pt w/ left eye severe subconjuctival hemorrage and B/ L eye lids w/ internal hordeolums on examination. Dr Dye consulted on Pt's symptoms and she evaluated Pt and recommended Opthalmologist f/u as soon as possible. Pt states, she called Dr Caldwell's office and he doesn't take her Insurance. I contacted DR Saxena's office and spoke to nurse and then she spoke patient who was going to be seen this afternoon. Pt Rx Bacitracin Ophthalmic Ointment. PT advised to apply warm compresses and massage the eye with gentle pressure 4-5 times for 10-15min throughout the day. Then apply ABX and f/u with machinist supervisor Dr Saxena in today appt. for further evaluation and treatment on her subconjunctival hemorrhage. d/C instructions explained. PT understood and agreed with plan of care. Pt left clinic hemodynamically stable, A&OX3 - Differential Dx/Diagnosis Differential Diagnosis/HQI/PQRI: Conjunctivitis, Hyphema, Keratitis, Penetrating Injury, Periorbital Cellulitis, Uveitis, Other - hordeolum, subconjunctival hemorrage Provider Diagnosis: Subconjunctival hemorrhage of left eye, Hordeolum internum Discharge - Sign-Out/Discharge Documenting (check all that apply): Patient Departure - d/c home All imaging exams completed and their final reports reviewed: No Studies - Discharge Plan Condition: Stable Disposition: HOME Prescriptions: Erythromycin OPTH OINT* [Erythromycin 0.5% OPTH OINT*] 1 applic BOTH EYES TID # 1 ophth.oint Patient Education Materials: Subconjunctival Hemorrhage (ED), Stye (ED) Referrals: Berta Flynn MD [Primary Care Provider] - 1 Day Courtney Saxena MD [Medical Doctor] - As Soon As Possible Additional Instructions: 1-Please apply ophthalmic ointment in both eyes as directed. Please apply warm compresses and massage the eye with gentle pressure 4-5 times for 10-15min throughout the day 2- Please See Junior Underwriter DR Saxena as soon as possible for further management in your subconjunctival hemorrage. 3- If your develpe severe pain in you rleft eye please go immediately to the ER for further management. - Billing Disposition and Condition Condition: STABLE Disposition: Home
== END 2019-01-07 11:45 | disposition home or self-care (01) ==
LOC: UCEAST 09:32
DX: H11.32 Conjunctival hemorrhage, left eye (principal); H00.029 Hordeolum internum unspecified eye, unspecified eyelid; I10 Essential (primary) hypertension; E78.5 Hyperlipidemia, unspecified; E03.9 Hypothyroidism, unspecified; K21.9 Gastro-esophageal reflux disease without esophagitis; F32.9 Major depressive disorder, single episode, unspecified; F17.210 Nicotine dependence, cigarettes, uncomplicated; Z88.8 Allergy status to other drugs, medicaments and biological substances
CPT/HCPCS: 99212; G0463

== ENCOUNTER 2019-02-10 17:50 | Emergency (ER) | payer OTHER ==
--- NOTE | 2019-02-10 19:01 | ED ---
Abdominal Pain/Female - HPI Summary HPI Summary: Pt is a 43 y/o M presenting to the ED with a chief complaint of RUQ pain initially onset on 02/07/19. She went to [facility], received a CT scan and advised her to f/u with her PCP. Her PCP recommended that if her N/V/abd pain returned, that she return to the ED. The pt reports her sx have not left, and that she has decreased oral intake as a side effect of the sx. Nothing makes the pain worse or better, and she took Zofran this morning around 1100 that allowed her to sleep for a little bit, despite vomiting a couple of times. - History of Current Complaint Chief Complaint: EDAbdPain Stated Complaint: NAUSEA, VOMITING PER PT Time Seen by Provider: 02/10/19 18:40 Hx Obtained From: Patient Hx Last Menstrual Period: 01/07/19 Onset/Duration: Sudden Onset, Lasting Days, Still Present Timing: Days Severity Initially: Moderate Severity Currently: Moderate Pain Intensity: 4 Pain Scale Used: 0-10 Numeric Location: Discrete At: RUQ Radiates: No Character: Cramping Aggravating Factor(s): Nothing Alleviating Factor(s): Nothing Associated Signs and Symptoms: Positive: Nausea, Vomiting Allergies/Adverse Reactions: Allergies Allergy/AdvReac Type Severity Reaction Status Date / Time methotrexate Allergy Hives Verified 02/10/19 20:07 walnuts Allergy Blisters Uncoded 02/10/19 20:07 in Mouth PMH/Surg Hx/FS Hx/Imm Hx Previously Healthy: Yes Endocrine/Hematology History: Denies: Hx Anticoagulant Therapy, Hx Diabetes, Hx Thyroid Disease Cardiovascular History: Reports: Hx Hypertension Denies: Hx Congestive Heart Failure, Hx Deep Vein Thrombosis, Hx Myocardial Infarction, Hx Pacemaker/ICD Respiratory History: Reports: Hx Asthma Denies: Hx Chronic Obstructive Pulmonary Disease (COPD), Hx Lung Cancer, Hx Pneumonia, Hx Pulmonary Embolism GI History: Denies: Hx Gall Bladder Disease, Hx Gastrointestinal Bleed, Hx Ulcer, Hx Urosepsis History: Denies: Hx Kidney Stones, Hx Renal Disease Neurological History: Reports: Hx Migraine - She is not on any medications for this. Denies: Hx Dementia, Hx Seizures, Hx Transient Ischemic Attacks (TIA) Psychiatric History: Reports: Hx Depression - No on medications at this time. Denies: Hx Anxiety, Hx Schizophrenia, Hx Bipolar Disorder - Surgical History Surgery Procedure, Year, and Place: Uterine Polypectomies, 2010, [facility]. Uterine Polypectomies, 04/20/13, [facility]. tubes in ears Infectious Disease History: No Infectious Disease History: Reports: Hx Shingles Denies: Hx Clostridium Difficile, Hx Hepatitis, Hx Human Immunodeficiency Virus (HIV), Hx of Known/Suspected MRSA, Hx Tuberculosis, Hx Known/Suspected VRE , Hx Known/Suspected VRSA, History Other Infectious Disease, Traveled Outside the [place] in Last 30 Days - Family History Known Family History: Positive: Cardiac Disease - mother, Hypertension - mother - Social History Alcohol Use: Daily Alcohol Amount: a few glasses of wine/ day Hx Substance Use: Yes Substance Use Type: Reports: Marijuana Substance Use Comment - Amount & Last Used: daily Hx Tobacco Use: Yes Smoking Status (MU): Former Smoker Type: Cigarettes Amount Used/How Often: ~1/2 PPD Length of Time of Smoking/Using Tobacco: 1 1/2Years Have You Smoked in the Last Year: Yes Review of Systems Positive: Other - decreased oral intake Positive: Abdominal Pain, Vomiting, Nausea All Other Systems Reviewed And Are Negative: Yes Physical Exam - Summary Physical Exam Summary: Appearance: The patient is well-nourished in no acute distress and in no acute pain. Skin: The skin is warm and dry and skin color reflects adequate perfusion. HEENT: The head is normocephalic and atraumatic. The pupils are equal and reactive. The conjunctivae are clear and without drainage. Nares are patent and without drainage. Mouth reveals moist mucous membranes and the throat is without erythema and exudate. The external ears are intact. The ear canals are patent and without drainage. The tympanic membranes are intact. Neck: The neck is supple with full range of motion and non-tender. There are no carotid bruits. There is no neck vein distension. Respiratory: Chest is non-tender. Lungs are clear to auscultation and breath sounds are symmetrical and equal. Cardiovascular: Heart is regular rate and rhythm. There is no murmur or rub auscultated. There is no peripheral edema and pulses are symmetrical and equal. Abdomen: The abdomen is mild RUQ tenderness. There are normal bowel sounds heard in all four quadrants and there is no organomegaly palpated. Musculoskeletal: There is no back tenderness noted. Extremities are non-tender with full range of motion. There is good capillary refill. There is no peripheral edema or calf tenderness elicited. Neurological: Patient is alert and oriented to person, place and time. The patient has symmetrical motor strength in all four extremities. Cranial nerves are grossly intact. Deep tendon reflexes are symmetrical and equal in all four extremities. Psychiatric: The patient has an appropriate affect and does not exhibit any anxiety or depression. Triage Information Reviewed: Yes Vital Signs On Initial Exam: Initial Vitals Temp Pulse Resp BP Pulse Ox 98.6 F 68 18 128/90 99 02/10/19 17:51 02/10/19 17:51 02/10/19 17:51 02/10/19 17:51 02/10/19 17:51 Vital Signs Reviewed: Yes Diagnostics - Vital Signs Vital Signs Temp Pulse Resp BP Pulse Ox 02/10/19 17:51 98.6 F 68 18 128/90 99 - Laboratory Result Diagrams: 02/10/19 19:47 02/10/19 19:47 Lab Statement: Any lab studies that have been ordered have been reviewed, and results considered in the medical decision making process. - Ultrasound No standard instances Ultrasound Interpretation Completed By: Radiologist Summary of Ultrasound Findings: Gallbladder US. Probable mild gallbladder sludge. No stones. Interval worsening of fatty infiltration of liver. ED physician has reviewed this report. Abdominal Pain Fem Course/Dx - Course Course Of Treatment: Ms. Ramos has been being treated with Zofran for what was described as a viral syndrome. She's been having some nausea vomiting and loose stools. Today she developed some right upper quadrant pain. She was nontoxic in appearance with stable vitals. An IV was initiated and she was given IV fluids as well as ketorolac and Zofran. Her workup was unremarkable including a gallbladder ultrasound showing only sludge. She was very much improved after the medication and fluids and I agree that this is likely a gastroenteritis that should resolve on its own. - Diagnoses Provider Diagnoses: Gastroenteritis Discharge - Sign-Out/Discharge Documenting (check all that apply): Patient Departure Patient Received Moderate/Deep Sedation with Procedure: No - Discharge Plan Condition: Stable Disposition: HOME Referrals: Berta Flynn MD [Primary Care Provider] - Additional Instructions: Please follow up with your primary care provider within the next 2-3 days. Return to the emergency department with any new or worsening symptoms. - Billing Disposition and Condition Condition: STABLE Disposition: Home - Attestation Statements Document Initiated by Scribe: Yes Documenting Scribe: Di Carey Provider For Whom Scribe is Documenting (Include Credential): Aman Mantilla MD. Scribe Attestation: Di Villeda, scrtiened for Aman Mantilla MD. on 02/10/19 at 2132. Scribe Documentation Reviewed: Yes Provider Attestation: The documentation as recorded by the scribe, Di Carey accurately reflects the service I personally performed and the decisions made by me, Aman Mantilla MD. Status of Scribe Document: Viewed
[2019-02-10] MEDS ORDERED: Metoclopramide IV* 5 MG/ML 2 ML VIAL IV ONE (19:23)
[2019-02-10] MEDS ORDERED: Ketorolac INJ* 30 MG/ML 1 ML VIAL IV PUSH ONE (19:23)
[2019-02-10 19:55] LABS: ABS Basophils 0.1 10^3/ul (0-0.2); ABS Eosinophils 0.2 10^3/ul (0-0.6); ABS Lymphocytes 2.3 10^3/ul (1.0-4.8); ABS Monocytes 0.6 10^3/ul (0-0.8); ABS Neutrophils 3.5 10^3/ul (1.5-7.7); Eosinophil % 2.8 %; Hematocrit 42 % (35-47); Lymphocyte % 34.2 %; Mean Corpuscular HGB Conc 34 g/dL (31-36); Mean Corpuscular Hemoglobin 30 pg (27-31); Mean Corpuscular Volume 89 fL (80-97); Mean Platelet Volume 7.9 fL (7.4-10.4); Nucleated Red Blood Cells % 0.1; Platelet Count 283 10^3/uL (150-450); Red Blood Count 4.67 10^6 /uL (3.70-4.87); Red Cell Distribution Width 14 % (10.5-15); White Blood Count 6.6 10^3/uL (3.5-10.8)
[2019-02-10 20:10] LABS: Albumin 4.5 g/dL (3.2-5.2); Albumin/Globulin Ratio 1.6 (1-3); BUN/Creatinine Ratio 15.3 (8-20); Calcium 9.8 mg/dL (8.6-10.3); EGFR African American 87.9 (>60); EGFR Non-African American 72.7 (>60); Globulin 2.9 g/dL (2-4); Potassium 3.4 mmol/L (3.5-5.0); Total Bilirubin 0.5 mg/dL (0.2-1.0); Total Protein 7.4 g/dL (6.4-8.9)
[2019-02-10 20:23] LABS: Urine Appearance Cloudy; Urine Bacteria Absent (Absent); Urine Bilirubin Negative (Negative); Urine Blood 3+ (Negative); Urine Color Amber; Urine Glucose Negative (Negative); Urine Ketones Trace (Negative); Urine Nitrite Negative (Negative); Urine Protein 1+(30 mg/dL) (Negative); Urine Red Blood Cell 1+(3-5/hpf) (Absent); Urine Specific Gravity 1.024 (1.010-1.030); Urine Squamous Epithelial Cell Present (Absent); Urine Urobilinogen Negative (Negative); Urine White Blood Cell 1+(6-10/hpf) (Absent)
[2019-02-10] MEDS ORDERED: NS 0.9% 1000 ML** 1,000 ML IV ONE (20:27)
[2019-02-10 22:00] VITALS: BP 116/84
== END 2019-02-10 22:00 | disposition home or self-care (01) ==
LOC: ED 17:50
DX: K52.9 Noninfective gastroenteritis and colitis, unspecified (principal); I10 Essential (primary) hypertension; J45.909 Unspecified asthma, uncomplicated; F32.9 Major depressive disorder, single episode, unspecified; Z88.8 Allergy status to other drugs, medicaments and biological substances; Z87.891 Personal history of nicotine dependence
CPT/HCPCS: 36415; 76705; 80053; 81003; 81015; 83605; 83690; 85025; 86140; 87086; 96361; 96374; 96375; 99283; J1885; J2765

== ENCOUNTER 2019-07-18 10:52 | Emergency (ER) | payer SELFPAY ==
[2019-07-18 11:20] VITALS: BP 153/94
--- NOTE | 2019-07-18 12:09 | UC ---
Back Pain HPI - HPI Summary HPI Summary: 43 year old female with h/o lower back pain, no injury/ trauma, presents with lower back pain, bilaterally. no Urinary symptoms, no incontinence, no weakness / tingling/ decreased strength. TYpically treated by chiroprator, but pain more severe than typical. pain with ambulation, but able to ambulate ALso noted increased shoulder pain, right sided. mild pain x several week, heard a "pop" noise while reaching for TP last night, pain since. no numbness / tingling, does have h/o CT R side, no surgery. full strength. no prior injuries/ trauma to back/ shoulder in past. - History of Current Complaint Chief Complaint: UCBackPain Stated Complaint: BACK PAIN Time Seen by Provider: 07/18/19 11:46 Hx Obtained From: Patient Hx Last Menstrual Period: 07/17/19 ?: No Onset/Duration: Sudden Onset Timing: Constant Severity Initially: Severe Severity Currently: Severe Pain Intensity: 8 Pain Scale Used: 0-10 Numeric Back Pain: Is Discrete @ - lower back, right shouler - Allergies/Home Medications Allergies/Adverse Reactions: Allergies Allergy/AdvReac Type Severity Reaction Status Date / Time methotrexate Allergy Hives Verified 07/18/19 11:17 walnuts Allergy Blisters Uncoded 07/18/19 11:17 in Mouth PMH/Surg Hx/FS Hx/Imm Hx Previously Healthy: No - h/o lower back pain, no formal dx's Other History Of: Negative For: HIV, Hepatitis B, Hepatitis C, Anticoagulant Therapy - Surgical History Surgical History: Unable to Obtain/Confirm Surgery Procedure, Year, and Place: Uterine Polypectomies, 2010, [facility]. Uterine Polypectomies, 04/20/13, [facility]. tubes in ears - Family History Known Family History: Positive: Cardiac Disease - mother, Hypertension - mother - Social History Alcohol Use: Daily Alcohol Amount: a few glasses of wine/ day Substance Use Type: Marijuana Substance Use Comment - Amount & Last Used: daily Smoking Status (MU): Former Smoker Type: Cigarettes Amount Used/How Often: ~1/2 PPD Length of Time of Smoking/Using Tobacco: ~1/2 PPD x 22 Years Have You Smoked in the Last Year: Yes When Did the Patient Quit Smoking/Using Tobacco: 2016 Household Exposure Type: Cigarettes - Immunization History Most Recent Influenza Vaccination: Not the 2016/2017 Season Most Recent Tetanus Shot: 03/30/17 Review of Systems All Other Systems Reviewed And Are Negative: Yes Constitutional: Positive: Negative Skin: Positive: Negative Musculoskeletal: Positive: Arthralgia, Edema, Myalgia Neurological: Positive: Negative Is Patient Immunocompromised?: No Physical Exam Triage Information Reviewed: Yes Appearance: Well-Appearing, No Pain Distress, Well-Nourished Vital Signs: Initial Vital Signs Temp 97.8 F 07/18/19 11:14 Pulse 71 07/18/19 11:14 Resp 18 07/18/19 11:14 BP 153/94 07/18/19 11:14 Pulse Ox 100 07/18/19 11:14 Vital Signs Reviewed: Yes Eyes: Positive: Conjunctiva Clear ENT: Positive: Hearing grossly normal Neck: Positive: Supple, Nontender, No Lymphadenopathy. Negative: Nuchal Rigidity, Enlarged Nodes @ Respiratory: Positive: Chest non-tender Musculoskeletal: Positive: Other: - R shoulder- TTP over superior GH, + supraspinatus, locke, neg speed, infra, bear/ belly testing. intact ROM, no TTP over biceps. Lower back- mild pain with flexion, none with extension/ side to side. ambulatory well, stiff gait due to pain, TTP over soft tissues lower flank b/l, no spine tenderness, minimal SI joint tenderness. Neurological: Positive: Alert, Other: - SITLT distal to R shoulder Psychological Exam: Normal Skin Exam: Normal Back Pain Course/Dx - Course Course Of Treatment: LUmbago, RC strain: - Gentle stretching exercises in next 2-3 days of back, shoulder - No heavy lifting, pushing, pulling x 3-4 days to prevent re-injury - Physical therapy recommended- follow up with PCP - TYlenol for aches, pains. Hold Motrin/ Naproxen until stopped steroids. - GO to ER with increased pain, numbness, tingling, bowel/ bladder incontinence , weakness. - Differential Dx/Diagnosis Provider Diagnosis: Lumbago, Rotator cuff (capsule) sprain Discharge ED - Sign-Out/Discharge Documenting (check all that apply): Patient Departure All imaging exams completed and their final reports reviewed: No Studies - Discharge Plan Condition: Good Disposition: HOME Prescriptions: Cyclobenzaprine TAB* [Flexeril 10 MG TAB*] 10 mg PO TID PRN #10 tab PRN Reason: muscle spasm methylPREDNISolone [Medrol] 4 mg PO .SEE XIN INSTRUCTION #1 tab.ds.pk Patient Education Materials: Low Back Strain (ED), Lower Back Exercises (ED), Rotator Cuff Tendinitis (ED) Referrals: Berta Flynn MD [Primary Care Provider] - Additional Instructions: - Gentle stretching exercises in next 2-3 days of back, shoulder - No heavy lifting, pushing, pulling x 3-4 days to prevent re-injury - Physical therapy recommended- follow up with PCP - TYlenol for aches, pains. Hold Motrin/ Naproxen until stopped steroids. - GO to ER with increased pain, numbness, tingling, bowel/ bladder incontinence , weakness. - Billing Disposition and Condition Condition: GOOD Disposition: Home
== END 2019-07-18 12:11 | disposition home or self-care (01) ==
LOC: UCCORT 10:52
DX: S43.421A Sprain of right rotator cuff capsule, initial encounter (principal); Z88.8 Allergy status to other drugs, medicaments and biological substances; Z91.09 Other allergy status, other than to drugs and biological substances; Z87.891 Personal history of nicotine dependence; M54.5 Low back pain; X58.XXXA Exposure to other specified factors, initial encounter; Y92.9 Unspecified place or not applicable
CPT/HCPCS: 99212; G0463

== ENCOUNTER 2019-10-16 14:42 | Emergency (ER) | payer BC ==
--- OUTSIDE RECORDS SUMMARY | 2019-10-16 15:23 | XMS REPORT | Summary of Care ---
:1975 Author Organization [facility] Address [address] [facility] [place] [address] Care Team Providers Name Role Phone Berta Flynn Primary Care Provider Reason for Visit Reason Comments Follow Up lab follow up Sick chest congestion, cough with yellow/brown sputum Encounter Details Date Type Department Care Team Description 10/06/2019 Office Visit [facility] STEWART Flynn (acute upper respiratory infection) (Primary Dx); Practice MD Berta Mixed hyperlipidemia; [address] [facility] Other chronic back pain; [place], [place] [id number] [place] [id number] Screening mammogram, encounter for [phone] Allergies Active Allergy Reactions Severity Noted Date Comments Kamaljit Inhibitors Respiratory Reaction 04/30/2017 cough Augmentin GI Reaction 02/19/2019 Food Other 02/14/2019 Walnuts cause blister in mouth Benzyl Alc-Methotrexate Hives 10/20/2016 Swelling documented as of this encounter (statuses as of 10/06/2019) Medications Medication Sig Dispensed Refills Start Date End Date Status Omeprazole 40 MG Oral TAKE ONE CAPSULE 30 Cap 5 07/06/2019 Active CAPSULE DELAYED RELEASE BY MOUTH EVERY DAY Losartan Potassium-HCTZ TAKE ONE TABLET 90 Tab 1 08/26/2019 Active 100-25 MG Oral Tab BY MOUTH EVERY DAY escitalopram (LEXAPRO) Take 1 Tab by 30 Tab 1 08/30/2019 Active 10 MG Oral Tab mouth DAILY. gabapentin (NEURONTIN) Take 1 Cap by 60 Cap 1 08/30/2019 Active 300 MG Oral Cap mouth TWICE DAILY. Additional information Patient taking differently: 300 mg Oral DAILY, Reported on 10/06/2019 2:01 PM levothyroxine (SYNTHROID) 25 Take 1 Tab by mouth 30 Tab 1 08/30/2019 Active MCG Oral TabIndications: BEFORE BREAKFAST. Acquired hypothyroidism documented as of this encounter (statuses as of 10/06/2019) Active Problems Problem Noted Date Rosacea 12/15/2017 Fatty liver 06/25/2017 RLS (restless legs syndrome) 04/30/2017 Hyperlipidemia 02/05/2017 Hematuria 11/30/2012 Hypertension Spondylitis documented as of this encounter (statuses as of 10/06/2019) Resolved Problems Problem Noted Date Resolved Date Fibromyalgia 02/15/2019 documented as of this encounter (statuses as of 10/06/2019) Immunizations Name Administration Dates Next Due Influenza (IM) Preservative Free 07/27/2017 documented as of this encounter Social History Tobacco Use Types Packs/Day Years Used Date Former Smoker Quit: 10/14/2016 Smokeless Tobacco: Never Used Alcohol Use Drinks/Week oz/Week Comments Yes Rarely Sex Assigned at Date Recorded Not on file Job Start Date Occupation Industry Not on file Not on file Not on file Travel History Travel Start Travel End No recent travel history available. documented as of this encounter Last Filed Vital Signs Vital Sign Reading Time Taken Comments Blood Pressure 124/90 10/06/2019 1:58 PM EST Pulse 89 10/06/2019 1:58 PM EST Temperature 37.1 10/06/2019 1:58 PM C (98.8 EST F) Respiratory Rate - - Oxygen Saturation 99% 10/06/2019 1:58 PM EST Inhaled Oxygen Concentration - - Weight 78.8 kg (173 lb 12.8 oz) 10/06/2019 1:58 PM EST Height 154.9 cm (5' 1") 10/06/2019 1:58 PM EST Body Mass Index 32.84 10/06/2019 1:58 PM EST documented in this encounter Patient Instructions Patient InstructionsBerta Flynn MD - 10/06/2019 2:00 PM EST1. Take plenty of fluids, rest 2. Mucinex or Robitussin DM prn cough as directed 3. Afrin nasal spray prn nasal congestion, no more than 3-5 days continuously 4. Tylenol prn for fever or pain 5. Call if no improvement or worse 6. Start Crestor 10 mg once a day 7. Schedule fasting blood tests in 2 months 8. Schedule physical end of 10/2019 9. Schedule Mammo-Electronically signed by Berta Flynn MD at 2018 2:13 PM EST documented in this encounter Progress Notes Berta Flynn MD - 10/06/2019 2:00 PM EST PATIENT: Neena Ramos : 1975 DATE OF SERVICE: 10/06/2019 Subjective SUBJECTIVE: Neena Ramos is a 44-y.o. female who presents for evaluation of nasal congestion, nonproductive cough and productive cough. Symptoms began 2 days ago and are gradually worsening since that time. She Also complains of low back pain for several week(s), mostly in am, without radiation down the legs. Precipitating factors: none recalled by the patient. Prior history of back problems: no prior back problems. There is no numbness or weakness in the legs. Past Medical History: Diagnosis Date Depression Essential (primary) hypertension Fatty liver 06/25/[address] Miller Family History Problem Relation Age of Onset Diabetes Mother Prostate Cancer Father Current Outpatient Medications Medication Sig escitalopram (LEXAPRO) 10 MG Oral Tab Take 1 Tab by mouth DAILY. gabapentin (NEURONTIN) 300 MG Oral Cap Take 1 Cap by mouth TWICE DAILY. ( Patient taking differently: Take 300 mg by mouth DAILY.) levothyroxine (SYNTHROID) 25 MCG Oral Tab Take 1 Tab by mouth BEFORE BREAKFAST. Losartan Potassium-HCTZ 100-25 MG Oral Tab TAKE ONE TABLET BY MOUTH EVERY DAY Omeprazole 40 MG Oral CAPSULE DELAYED RELEASE TAKE ONE CAPSULE BY MOUTH EVERY DAY No current facility-administered medications for this visit. Allergies Allergen Reactions Kamaljit Inhibitors Respiratory Reaction cough Augmentin GI Reaction Food Other Walnuts cause blister in mouth Methotrexate [Benzyl Alc-Methotrexate] Hives Swelling Social History Socioeconomic History Marital status: Single Spouse name: Not on file Number of children: Not on file Years of education: Not on file Highest education level: Not on file Occupational History Not on file Social Needs Financial resource strain: Not on file Food insecurity Worry: Not on file Inability: Not on file Transportation needs Medical: Not on file Non-medical: Not on file Tobacco Use Smoking status: Former Smoker Last attempt to quit: 10/14/2016 Years since quittin.9 Smokeless tobacco: Never Used Substance and Sexual Activity Alcohol use: Yes Comment: Rarely Drug use: Yes Types: Marijuana Sexual activity: Not on file Lifestyle Physical activity Days per week: Not on file Minutes per session: Not on file Stress: Not on file Relationships Social connections Talks on phone: Not on file Gets together: Not on file Attends yarsanism service: Not on file Active member of club or organization: Not on file Attends meetings of clubs or organizations: Not on file Relationship status: Not on file Intimate partner violence Fear of current or ex partner: Not on file Emotionally abused: Not on file Physically abused: Not on file Forced sexual activity: Not on file Other Topics Concern Back Care Not Asked Bike Helmet Not Asked Blood Transfusions Not Asked Caffeine Concern Not Asked Exercise Not Asked Hobby Hazards Not Asked International Travel Not Asked Service Not Asked Occupational Exposure Not Asked Seat Belt Not Asked Self-Exams Not Asked Sleep Concern Not Asked Special Diet Not Asked Stress Concern Not Asked Weight Concern Not Asked Social History Narrative Not on file REVIEW OF SYSTEMS: All remaining review of systems was negative. Objective OBJECTIVE: BP 124/90 | Pulse 89 | Temp 98.8 F (37.1 C) | Ht 5' 1" (1.549 m) | Wt 173 lb 12.8 oz (78.8 kg) | SpO2 99% | BMI 32.84 kg/m GENERAL: alert, fatigued. HEENT: bilateral tympanic membrane normal without fluid or infection, neck without nodes, pharynx erythematous without exudate, sinuses non tender and nasal mucosa congested. LUNGS: clear to auscultation bilaterally. HEART: regular rate and rhythm, S1, S2 normal, no murmur, click, rub or gallop. Back exam: full range of motion, no tenderness, palpable spasm or pain on motion. CMP - elevated stable LFT's, FLP - high TC, LDL, TG, TSH - normal Component Latest Ref Rng & Units 09/29/2019 09/29/2019 09/29/2019 09/29/2019 11:03 AM 11:03 AM 11:03 AM 11:03 AM Sodium 134 - 145 mmol/L 137 Potassium 3.5 - 5.1 mmol/L 3.6 Chloride 98 - 107 mmol/L 102 CO2 22 - 30 mmol/L 27 Calcium 8.3 - 10.1 mg/dl 9.8 Albumin 3.5 - 5.0 g/dl 4.3 BUN 7 - 17 mg/dl 17 Creatinine 0.7 - 1.2 mg/dl 0.6 (L) Glucose (Lab) 70 - 99 mg/dl 97 Protein,Total 6.3 - 8.2 g/dl 7.8 Total Bilirubin 0.0 - 1.1 MG/DL 0.6 AST 15 - 46 U/L 86 (H) ALT 9 - 52 U/L 64 (H) ALKALINE PHOSPHATASE 40 - 150 U/L 61 eGFR See Interpretation Below ml/min/1.73ml Sq >60 BUN/Creatinine Ratio 6 - 22 RATIO 28 (H) Anion Gap 3 - 11 mmol/L 8 A/G Ratio 0.8 - 2.0 ratio 1.2 Cholestrol <200 mg/dl 284 (H) HDL >50 mg/dl 53 Triglycerides <150 mg/dl 208 (H) LDL Cholesterol <100 MG/DL 189 (H) Cholesterol / HDL Ratio RATIO 5.4 LDL / HDL Ratio 3.6 Non-HDL Cholesterol 0 - 130 MG/DL 231 (H) Patient Fasting: Yes TSH 0.47 - 4.68 uIu/ml 1.88 Free T4 0.8 - 2.2 NG/DL 1.0 The nature of cardiac risk has been fully discussed with this patient. I have made her aware of her LDL target goal given her cardiovascular risk analysis. I have discussed the appropriate diet. The need for lifelong compliance in order to reduce risk is stressed ICD-9-CM ICD-10-CM 1. URTI (acute upper respiratory infection) 465.9 J06.9 2. Mixed hyperlipidemia 272.2 E78.2 COMPREHENSIVE METABOLIC PANEL LIPID PROFILE 3. Other chronic back pain 724.5 M54.9 338.29 G89.29 4. Screening mammogram, encounter for V76.12 Z12.31 MAMMO SCREENING TOMOSYNTHESIS BILATERAL Patient Instructions 1. Take plenty of fluids, rest 2. Mucinex or Robitussin DM prn cough as directed 3. Afrin nasal spray prn nasal congestion, no more than 3-5 days continuously 4. Tylenol prn for fever or pain 5. Call if no improvement or worse 6. Start Crestor 10 mg once a day 7. Schedule fasting blood tests in 2 months 8. Schedule physical end of 10/2019 9. Schedule Mammo- Author: Berta Flynn MD 10/06/2019 14:16 documented in this encounter Plan of Treatment Date Type Specialty Care Team Description 10/24/2019 Office Visit Family Practice Berta Flynn MD [address] [place] [id number] [phone] 11/02/2019 Ancillary Procedure Radiology 12/05/2019 Lab Internal Medicine Name Type Priority Associated Diagnoses Order Schedule COMPREHENSIVE METABOLIC Lab Routine Mixed hyperlipidemia Expected: PANEL 10/06/2019 (Approximate), Expires: 10/06/2020 LIPID PROFILE Lab Routine Mixed hyperlipidemia Expected: 10/06/2019 (Approximate), Expires: 10/06/2020 MAMMO SCREENING Imaging Routine Screening mammogram, Expected: TOMOSYNTHESIS BILATERAL encounter for 10/06/2019, Expires: 01/03/2021 Health Maintenance Due Date Last Done Comments DTaP/Tdap/Td Vaccines ( - 1985 Tdap) MAMMOGRAM (SCREENING) 12/10/2018 12/10/2017, 12/01/2016, 11/05/2016, Additional history exists PAP SMEAR 11/05/2019 11/05/2016, 11/05/2016, 11/05/2016 DEPRESSION SCREENING 11/29/2019 11/29/2018 DIABETES SCREENING 09/29/2020 09/29/2019, 02/19/2019, 11/25/2018, Additional history exists LIPID DISORDER SCREENING 09/29/2020 09/29/2019, 11/25/2018, 08/10/2018, Additional history exists HEPATITIS A IMMUNIZATION Aged Out No longer eligible SERIES based on patient's age to complete this topic HPV IMMUNIZATION SERIES Aged Out No longer eligible based on patient's age to complete this topic MENINGOCOCCAL VACCINE IMM Aged Out No longer eligible based on patient's age to complete this topic PNEUMOCOCCAL 0-64 YRS Aged Out No longer eligible based on patient's age to complete this topic documented as of this encounter Goals Goal Patient Goal Associated Recent Patient-Stated? Author Type Problems Progress Blood Pressure Blood Pressure 124/90 No Gee, < 140/90 (10/06/2019 Berta, 1:58 PM EST) Note: This is an individualized treatment (blood pressure) goal for Neena Ramos: Displayed above (on the left) is your goal for blood pressure control. Your most recent blood pressure is also shown above, on the right. You should try to achieve blood pressures that are lower than your goal listed above (on the left). Weight loss vs. 18 mo Lifestyle 10.5 (10/06/2019 1:58 PM Berta Pappas MD max (lbs) >= 10 EST) Note: This is an individualized lifestyle goal for Neena Ramos: Your body mass index (BMI) is more than 30. You should lose weight. A reasonable starting goal is to lose 10 pounds. Displayed above is how many pounds you have lost thus far towards your 10 pound weight loss goal. Take all prescribed medications as Self-management No Berta Flynn MD directed Note: This is an individualized self-management goal for Neena Ramos: Please take all prescribed medications as directed. 1. Do not skip doses. If you cannot afford your medications, talk with your doctor. 2. Use a pill reminder system such as a pill box if needed. Your pharmacist can help you with this. 3. Contact your Pharmacy 5 days before your medication runs out. If you cannot take your medications for any reasons, talk with your doctor. 4. Please bring all of your medication bottles and inhalers (or a list of all your medications/inhalers) with you to every visit. Potential barriers to meeting all of your care plan goals will continue to be addressed on an ongoing basis. documented as of this encounter Results Not on filedocumented in this encounter Visit Diagnoses Diagnosis URTI (acute upper respiratory infection) Acute upper respiratory infections of unspecified site Mixed hyperlipidemia Other chronic back pain Screening mammogram, encounter for documented in this encounter Insurance Payer Benefit Plan / Subscriber ID Effective Dates Phone Address Type Group DIONISIO GOMEZ xxxxxxxxxxxx 2019-Present Dionisio DEAL Guarantor Name Account Type Relation to Date of Phone Billing Patient Address Neena Ramos Personal/Family 1975 [id number] [phone] [place], [place] ([place]) [id number] documented as of this encounter Advance Directives Type Date Recorded Patient Heavy Equipment Rental Associate Explanation Advance Directives 12/01/2017 8:21 AM Andrew Primary care change form
[2019-10-16 15:33] VITALS: BP 133/91
--- NOTE | 2019-10-16 15:49 | UC ---
Throat Pain/Nasal Aris HPI - HPI Summary HPI Summary: 44-year-old woman comes in with a chief complaint of 2 weeks of upper respiratory tract infection symptoms. Patient has rhinorrhea and left sided maxillary facial sinus pressure. Feels like her left ear is clogged. She also has yellow sputum production. No complaint of any shortness of breath or wheezing. She has tried molo-mtt-ihhyoin medications which do help some with the symptoms but overall is not improving. - History of Current Complaint Chief Complaint: UCRespiratory Stated Complaint: COUGH/CONGESTION Time Seen by Provider: 10/16/19 15:30 Hx Last Menstrual Period: "last month" SEP 2019 Pain Intensity: 4 - Allergies/Home Medications Allergies/Adverse Reactions: Allergies Allergy/AdvReac Type Severity Reaction Status Date / Time methotrexate Allergy Hives Verified 10/16/19 15:29 walnuts Allergy Blisters Uncoded 10/16/19 15:29 in Mouth PMH/Surg Hx/FS Hx/Imm Hx Previously Healthy: Yes Endocrine History: Hypothyroidism Cardiovascular History: Hypertension GI/ History: Gastroesophageal Reflux Other History Of: Negative For: HIV, Hepatitis B, Hepatitis C, Anticoagulant Therapy - Surgical History Surgical History: Yes Surgery Procedure, Year, and Place: Uterine Polypectomies, 2010, [facility]. Uterine Polypectomies, 04/20/13, [facility]. tubes in ears - Family History Known Family History: Positive: Cardiac Disease - mother, Hypertension - mother - Social History Alcohol Use: Daily Alcohol Amount: a few glasses of wine/ day Substance Use Type: Marijuana Substance Use Comment - Amount & Last Used: daily Smoking Status (MU): Light Every Day Tobacco Smoker Type: Cigarettes Amount Used/How Often: ~1/2 PPD Length of Time of Smoking/Using Tobacco: ~1/2 PPD x 22 Years Have You Smoked in the Last Year: Yes When Did the Patient Quit Smoking/Using Tobacco: 2016; restarted smoking AUG 2019 Household Exposure Type: Cigarettes - Immunization History Most Recent Influenza Vaccination: Not the 2016/2017 Season Most Recent Tetanus Shot: 03/30/17 Review of Systems All Other Systems Reviewed And Are Negative: Yes Constitutional: Positive: Other - see hpi Skin: Positive: Negative Eyes: Positive: Negative ENT: Positive: Ear Ache, Nasal Discharge, Sinus Congestion, Sinus Pain/ Tenderness Respiratory: Positive: Cough Cardiovascular: Positive: Negative Gastrointestinal: Positive: Negative Motor: Positive: Negative Neurovascular: Positive: Negative Musculoskeletal: Positive: Negative Neurological: Positive: Negative Psychological: Positive: Negative Is Patient Immunocompromised?: No Physical Exam Triage Information Reviewed: Yes Appearance: No Pain Distress, Well-Nourished, Ill-Appearing - mild Vital Signs: Initial Vital Signs Temp 97.3 F 10/16/19 15:28 Pulse 86 10/16/19 15:28 Resp 16 10/16/19 15:28 BP 133/91 10/16/19 15:28 Pulse Ox 98 10/16/19 15:28 Vital Signs Reviewed: Yes Eye Exam: Normal Eyes: Positive: Conjunctiva Clear ENT: Positive: Pharyngeal erythema, Nasal congestion, Nasal drainage, TMs normal Neck: Positive: Supple Respiratory: Positive: Lungs clear, Normal breath sounds, No respiratory distress Cardiovascular: Positive: RRR Musculoskeletal: Positive: Strength Intact, ROM Intact Neurological: Positive: Alert, Muscle Tone Normal Psychological: Positive: Age Appropriate Behavior Skin Exam: Normal Throat Pain/Nasal Course/Dx - Course Course Of Treatment: Lung examination was clear to auscultation making pneumonia less likely. We discussed whether or not the chest x-ray at this time no chest x-ray but we will treat with doxycycline as it should cover both chest and sinuses. Follow- up with primary care physician. Patient's to get reevaluated if worse or any questions or concerns. - Differential Dx/Diagnosis Provider Diagnosis: Sinusitis, Bronchitis Discharge ED - Sign-Out/Discharge Documenting (check all that apply): Patient Departure All imaging exams completed and their final reports reviewed: No Studies - Discharge Plan Condition: Stable Disposition: HOME Prescriptions: Benzonatate CAP* [Tessalon 100 MG CAP*] 100 mg PO TID PRN #20 cap PRN Reason: Cough DOXYcycline CAP(*) [DOXYcycline 100MG CAP(*)] 100 mg PO BID #20 cap Patient Education Materials: Sinusitis (ED), Acute Bronchitis (ED) Referrals: Berta Flynn MD [Primary Care Provider] - Additional Instructions: FOLLOW UP WITH YOUR DOCTOR IF NOT COMPLETELY IMPROVED. GET REEVALUATED SOONER IF NOT IMPROVING OR WORSE OR ANY QUESTIONS OR CONCERNS. - Billing Disposition and Condition Condition: STABLE Disposition: Home
== END 2019-10-16 15:55 | disposition home or self-care (01) ==
LOC: UCCORT 14:42
DX: J40 Bronchitis, not specified as acute or chronic (principal); J32.9 Chronic sinusitis, unspecified; I10 Essential (primary) hypertension; F17.210 Nicotine dependence, cigarettes, uncomplicated; Z91.018 Allergy to other foods; Z88.8 Allergy status to other drugs, medicaments and biological substances
CPT/HCPCS: 99212; G0463

== ENCOUNTER 2019-11-29 16:00 | Emergency (ER) | payer BC ==
--- OUTSIDE RECORDS SUMMARY | 2019-11-29 16:50 | XMS REPORT | Summary of Care ---
:1975 Author Organization [facility] Address [address] [facility] [place] [address] Care Team Providers Name Role Phone Berta Flynn Primary Care Provider Reason for Visit Reason Comments Sinus Problem sick Encounter Details Date Type Department Care Team Description 10/19/2019 Office Visit [facility], Acute bacterial Practice JUAN Gallego rhinosinusitis (Primary [address]) [place] [address] [place] [address] [phone] Allergies Active Allergy Reactions Severity Noted Date Comments Kamaljit Inhibitors Respiratory Reaction 04/30/2017 cough Augmentin GI Reaction 02/19/2019 Food Other 02/14/2019 Walnuts cause blister in mouth Benzyl Alc-Methotrexate Hives 10/20/2016 Swelling documented as of this encounter (statuses as of 10/19/2019) Medications Medication Sig Dispensed Refills Start Date [...] Reported on 10/06/2019 2:01 PM levothyroxine (SYNTHROID) Take 1 Tab by mouth 30 Tab 1 08/30/2019 Active 25 MCG Oral BEFORE BREAKFAST. TabIndications: Acquired hypothyroidism doxycycline monohydrate Take 100 mg by mouth 0 10/16/2019 10/26/2019 Active (MONODOX) 100 MG Oral TWICE DAILY. CapIndications: Bacterial Indications: Infection Infection caused by Bacteria Cefdinir (OMNICEF) 300 MG Take 1 Cap by mouth 14 Cap 0 10/19/2019 Active Oral CapIndications: Acute TWICE DAILY. bacterial rhinosinusitis fluticasone (FLONASE) 50 [place] 2 Sprays in 1 Bottle 0 10/19/2019 Active MCG/ACT Nasal nose DAILY. SuspensionIndications: Acute bacterial rhinosinusitis documented as of this encounter (statuses as of 10/19/2019) Active Problems Problem Noted Date Rosacea 12/15/2017 Fatty liver 06/25/2017 RLS (restless legs syndrome) 04/30/2017 Hyperlipidemia 02/05/2017 Hematuria 11/30/2012 Hypertension Spondylitis Fibromyalgia documented as of this encounter (statuses as of 10/19/2019) Immunizations Name Administration Dates Next Due Influenza (IM) Preservative Free 07/27/2017 documented as of this encounter Social History Tobacco Use Types Packs/Day Years Used Date Current Every Day Smoker Cigarettes 0.3 Quit: 10/14/2016 Smokeless Tobacco: Never Used Tobacco Cessation: Ready to Quit: Yes; Counseling Given: Yes Comments: Started smoking again August 2019. Alcohol Use Drinks/Week oz/Week Comments Yes Rarely Sex Assigned at Date Recorded Not on file Job Start Date Occupation Industry Not on file Not on file Not on file Travel History Travel Start Travel End No recent travel history available. documented as of this encounter Last Filed Vital Signs Vital Sign Reading Time Taken Comments Blood Pressure 132/90 10/19/2019 3:19 PM EST Pulse 92 10/19/2019 3:19 PM EST Temperature 36.8 10/19/2019 3:19 PM EST C (98.3 F) Respiratory Rate 16 10/19/2019 3:19 PM EST Oxygen Saturation - - Inhaled Oxygen Concentration - - Weight 78.5 kg (173 lb) 10/19/2019 3:19 PM EST Height 154.9 cm (5' 1") 10/19/2019 3:19 PM EST Body Mass Index 32.69 10/19/2019 3:19 PM EST documented in this encounter Patient Instructions Patient InstructionsLashonda Villeda NP - 10/19/2019 2:20 PM EST 1) Cefdinir 300 mg twice daily for 7 days - as we discussed there is a small chance of a cross-sensitivity due to your allergy to penicillin. We discussed risks vs benefits, penicillin allergy is diarrhea. If you develop diarrhea from the cefdinir please call and let us know. 2) Take Tylenol and Ibuprofen over the counter as needed for pain and symptom relief 3) Flonase 2 sprays in each nostril daily 5) Salt water gargles, cough drops, and hot tea with lemon or honey to help soothe your throat. 6) Get plenty of rest and fluids 7) Please call or return if symptoms worsen or fail to improve You have been prescribed an antibiotic for treatment of your condition. It is important to rememberthat antibiotics treat bacterial infections. In order for them to be effective - you must take ALL of the medication and take it exactly as prescribed. FINISH THE MEDICATION - even if you are feelingbetter. Antibiotics can cause stomach upset and diarrhea. You can help decrease these symptoms by also taking a probiotic while using the medication (Align, Culturelle or the like). Take with food if recommended by the pharmacist. If you are not feeling better in 3-5 days - call or return to the office. Upper Respiratory Infection HUMAN RESOURCES COMMUNICATIONS MANAGER: An upper respiratory infection is also called a common cold. It can affect your nose, throat, ears,and sinuses. Common signs and symptoms include the following: Cold symptoms are usually worst for the first 3 to5 days. You may have any of the following: Runny or stuffy nose Sneezing and coughing Sore throat or hoarseness Red, watery, and sore eyes Fatigue Chills and fever Headache, body aches, or sore muscles Seek care immediately if: You have severe headaches, a stiff neck, or eye pain when you look at bright light. You have chest pain or trouble breathing. Contact your healthcare provider if: You have a fever over 102F (39C). Your sore throat gets worse or you see white or yellow spots in your throat. Your symptoms get worse after 3 to 5 days or your cold is not better in 14 days. You have a rash anywhere on your skin. You have large, tender lumps in your neck. You have thick, green or yellow drainage from your nose. You cough up thick yellow, green, rios, or bloody mucus. You have vomiting for more than 24 hours and cannot keep fluids down. You have a bad earache. You have questions or concerns about your condition or care. Treatment for a cold: There is no cure for the common cold. Colds are caused by viruses and do not get better with antibiotics. Most people get better in 7 to 14 days. You may continue to cough for 2 to 3 weeks. The following may help decrease your symptoms: Decongestants help reduce nasal congestion and help you breathe more easily. If you take decongestant pills, they may make you feel restless or not able to sleep. Do not use decongestant sprays for more than a few days. Cough suppressants help reduce coughing. Ask your healthcare provider which type of cough medicine is best for you. NSAIDs , such as ibuprofen, help decrease swelling, pain, and fever. NSAIDs can cause stomach bleeding or kidney problems in certain people. If you take blood thinner medicine, always ask your healthcare provider if NSAIDs are safe for you. Always read the medicine label and follow directions. Acetaminophen decreases pain and fever. It is available without a doctor' s order. Ask how muchto take and how often to take it. Follow directions. Acetaminophen can cause liver damage if not taken correctly. Manage your cold: Use a humidifier or vaporizer. Use a cool mist humidifier or a vaporizer to increase air moisture in your home. This may make it easier for you to breathe and help decrease your cough. Gargle with warm salt water to help your sore throat feel better. Make salt water by adding teaspoon salt to 1 cup warm water. You may also suck on hard candy or throat lozenges. You may usea sore throat spray. Use saline nasal drops to help relieve your congestion. Drink liquids as directed. Liquids help keep your air passages moist and help you cough up mucus. Ask how much liquid to drink each day and which liquids are best for you. Rest as much as possible. Slowly start to do more each day. Prevent spreading your cold to others: Try to stay away from other people during the first 2 to 3 days of your cold when it is more easily spread. Do not share food or drinks. Do not share hand towels with household members. Wash your hands often, especially after you blow your nose. Turn away from other people and cover your mouth and nose with a tissue when you sneeze or cough. Follow up with your healthcare provider as directed: Write down your questions so you remember to ask them during your visits. 2016 [employer]. Information is for End User's use only and may not be sold, redistributed or otherwise used for commercial purposes. All illustrations and images included in CareNotes are the copyrighted property of [employer], [employer]. or [employer]. The above information is an ed educational aide only. It is not intended as medical advice for individual conditions or treatments. Talk to your doctor, nurse or pharmacist before following any medical regimen to see if it is safe and effective for you. documented in this encounter Progress Notes Lashonda Villeda NP - 10/19/2019 2:20 PM EST PATIENT: Neena Ramos : 1975 DATE OF SERVICE: 10/19/2019 CHIEF COMPLAINT: Chief Complaint Patient presents with Sinus Problem sick Subjective HISTORY OF PRESENT ILLNESS: Neena Ramos is a 44-y.o. female. HPI Saw Dr. Flynn on 10/06, was sick at that time - symptoms started 10/04. Still ongoing. Went tourgent care, dx with sinusitis and bronchitis or pneumonia, given doxycycline. Brother and mother both have pneumonia currently. 3rd day of doxycycline but this is causing her stomach issues, making her vomit, can't the medicine done. Not nauseous at other times, only after taking the doxycyline. No fevers. No chest xray done at urgent care. She can feel "stuff" moving around in her lungs when she breaths. Pressure in head and teeth, ears hurt. Past Medical History: Diagnosis Date Depression Essential (primary) hypertension Fatty liver 06/25/[address] Miller Family History Problem Relation Age of Onset Diabetes Mother Prostate Cancer Father Current Outpatient Medications Medication Sig Cefdinir (OMNICEF) 300 MG Oral Cap Take 1 Cap by mouth TWICE DAILY. doxycycline monohydrate (MONODOX) 100 MG Oral Cap Take 100 mg by mouth TWICE DAILY. Indications: Infection caused by Bacteria escitalopram (LEXAPRO) 10 MG Oral Tab Take 1 Tab by mouth DAILY. fluticasone (FLONASE) 50 MCG/ACT Nasal Suspension [place] 2 Sprays in nose DAILY. gabapentin (NEURONTIN) 300 MG Oral Cap [...] TAKE ONE CAPSULE BY MOUTH EVERY DAY Rosuvastatin Calcium (CRESTOR) 10 MG Oral Tab Take 1 Tab by mouth DAILY. No current facility-administered medications for this visit. [...] Not on file Tobacco Use Smoking status: Current Every Day Smoker Packs/day: 0.30 Types: Cigarettes Last attempt to quit: 10/14/2016 Years since quittin.0 Smokeless tobacco: Never Used Tobacco comment: Started smoking again August 2019. Substance and Sexual Activity Alcohol use: Yes Comment: Rarely Drug use: Yes Types: Marijuana Sexual activity: Not on file Lifestyle Physical activity Days per week: Not on file Minutes per session: Not on file Stress: Not on file Relationships Social connections Talks on phone: Not on file Gets together: Not on file Attends temple service: Not on file Active member of [...] Narrative Not on file REVIEW OF SYSTEMS: Review of Systems Constitutional: Positive for malaise/fatigue. Negative for chills and fever. HENT: Positive for congestion, ear pain (pressure), sinus pain and sore throat. Eyes: Negative for pain, discharge and redness. Respiratory: Positive for cough and sputum production (brown). Negative for shortness of breath and wheezing. Cardiovascular: Positive for chest pain (tightness). Negative for palpitations. Gastrointestinal: Positive for nausea and vomiting. Negative for abdominal pain , constipation and diarrhea. Genitourinary: Negative for dysuria, frequency and urgency. Musculoskeletal: + body aches Neurological: Positive for headaches. Negative for dizziness. Objective PHYSICAL EXAM: VITALS: BP 132/90 | Pulse 92 | Temp 98.3 F (36.8 C) | Resp 16 | Ht 5' 1" (1.549 m) | Wt 173 lb (78.5 kg) | BMI 32.69 kg/m Body mass index is 32.69 kg/m. Physical Exam Vitals signs and nursing note reviewed. Constitutional: General: She is not in acute distress. Appearance: Normal appearance. She is well-developed. She is not ill- appearing or toxic-appearing. HENT: Right Ear: Ear canal and external ear normal. A middle ear effusion is present. No mastoid tenderness. Tympanic membrane is not erythematous, retracted or bulging. Left Ear: Ear canal and external ear normal. A middle ear effusion is present. No mastoid tenderness. Tympanic membrane is not erythematous, retracted or bulging. Nose: Mucosal edema (erythema) present. Right Sinus: Maxillary sinus tenderness and frontal sinus tenderness present. Left Sinus: Maxillary sinus tenderness and frontal sinus tenderness present. Mouth/Throat: Mouth: Mucous membranes are moist. Pharynx: Oropharynx is clear. Uvula midline. Posterior oropharyngeal erythema (PND) present. No oropharyngeal exudate. Tonsils: No tonsillar exudate. Swellin+ on the right. 1+ on the left. Eyes: Conjunctiva/sclera: Conjunctivae normal. Cardiovascular: Rate and Rhythm: Normal rate and regular rhythm. Heart sounds: Normal heart sounds. Pulmonary: Effort: Pulmonary effort is normal. Breath sounds: Normal breath sounds. Lymphadenopathy: Head: Right side of head: No submental, submandibular or tonsillar adenopathy. Left side of head: No submental, submandibular or tonsillar adenopathy. Cervical: No cervical adenopathy. Right cervical: No superficial cervical adenopathy. Left cervical: No superficial cervical adenopathy. Upper Body: Right upper body: No supraclavicular adenopathy. Left upper body: No supraclavicular adenopathy. Neurological: Mental Status: She is alert. Psychiatric: Behavior: Behavior is cooperative. ASSESSMENT / IMPRESSION: ICD-9-CM ICD-10-CM 1. Acute bacterial rhinosinusitis 461.9 J01.90 Cefdinir (OMNICEF) 300 MG Oral Cap B96.89 fluticasone (FLONASE) 50 MCG/ACT Nasal Suspension Plan 1. Acute bacterial rhinosinusitis -Allergic to augmentin. Not tolerating doxycycline prescribed by urgent care. -Discussed small percentage of patients allergic to pcn will also be allergic to cephalosporins. Her reaction to pcn was diarrhea, no respiratory reaction or swelling. Given low risk of cross-sensitivity and low-risk reaction of pcn, I think ok to try cefdinir. If she develops reaction or diarrhea she is advised to stop the medication and call the office - or to ER for swelling or trouble breathing. 1) Cefdinir 300 mg twice daily for 7 days - as we discussed there is a small chance of a cross-sensitivity due to your allergy to penicillin. We discussed risks vs benefits, penicillin allergy is diarrhea. If you develop diarrhea from the cefdinir please call and let us know. 2) Take Tylenol and Ibuprofen over the counter as needed for pain and symptom relief 3) Flonase 2 sprays in each nostril daily 5) Salt water gargles, cough drops, and hot tea with lemon or honey to help soothe your throat. 6) Get plenty of rest and fluids 7) Please call or return if symptoms worsen or fail to improve - Cefdinir (OMNICEF) 300 MG Oral Cap; Take 1 Cap by mouth TWICE DAILY. Dispense : 14 Cap; Refill: 0 - fluticasone (FLONASE) 50 MCG/ACT Nasal Suspension; [place] 2 Sprays in nose DAILY. Dispense: 1 Bottle; Refill: 0 Author: Lashonda Villeda NP 10/19/2019 17:30 documented in this encounter Plan of Treatment Date Type Specialty Care Team Description 10/24/2019 Office Visit Family Practice Berta Flynn MD [address] [id number] [phone] 11/02/2019 Ancillary Procedure Radiology 12/05/2019 Lab Internal Medicine Health Maintenance Due Date Last Done Comments PNEUMOCOCCAL 0-64 YRS (1980 1 - PPSV23) DTaP/Tdap/Td Vaccines (1985 Tdap) MAMMOGRAM (SCREENING) 12/10/2018 12/10/2017, 12/01/2016, 11/05/2016, Additional history exists PAP SMEAR 11/05/2019 11/05/2016, 11/05/2016, 11/05/2016 DEPRESSION SCREENING 11/29/2019 11/29/2018 DIABETES SCREENING 09/29/2020 09/29/2019, 02/19/2019, 11/25/2018, Additional history exists LIPID DISORDER SCREENING 10/19/2020 10/19/2019, 09/29/2019, 11/25/2018, Additional history exists HEPATITIS A IMMUNIZATION Aged [...] Type Problems Progress Blood Pressure Blood Pressure 132/90 No Gee, < 140/90 (10/19/2019 Berta, 3:19 PM EST) Note: This is an individualized treatment (blood pressure) goal for Neena Ramos: Displayed above (on the left) is your goal for blood pressure control. Your most recent blood pressure is also shown above, on the right. You should try to achieve blood pressures that are lower than your goal listed above (on the left). Weight loss vs. 18 mo Lifestyle 11.3 (10/19/2019 3:19 PM No Berta Flynn MD max (lbs) >= 10 EST) Note: This is an individualized lifestyle goal for Neena Ramos: Your body mass index (BMI) is more than 30. You should lose weight. A reasonable starting goal is to lose 10 pounds. Displayed above is how many pounds you have lost thus far towards your 10 pound weight loss goal. Take all prescribed medications as Self-management Berta Pappas MD directed Note: This is an individualized [...] filedocumented in this encounter Visit Diagnoses Diagnosis Acute bacterial rhinosinusitis documented in this encounter Insurance Payer Benefit Plan / Subscriber ID Effective Dates Phone Address Type Group DIONISIO GOMEZ xxxxxxxxxxxx 2019-Present Dionisio QUINTANA PPO Guarantor Name Account Type Relation to Date of Phone Billing Patient Address Neena Ramos Personal/Family 1975 [address] (Home) [facility] [phone] [place], [place] (Work) [id number] documented as of this encounter Advance Directives Type Date Recorded Patient Biologist Explanation Advance Directives 12/01/2017 8:21 AM Andrew Primary care change form
[2019-11-29 17:03] VITALS: BP 118/75
[2019-11-29 17:24] LABS: Influenza A Molecular Negative (Negative); Influenza B Molecular Negative (Negative)
--- NOTE | 2019-11-29 17:28 | UC ---
General HPI - HPI Summary HPI Summary: 44-year-old female with a history of fibromyalgia as well as rheumatoid issues. She has been seen by a specialist probably 6 months ago and had a lot of blood work done however has not followed up with that specialist since then although she was supposed to. She states her daughter was diagnosed with influenza last week and she wants to check and have a flu test to make sure she does or does not have it. She denies any fever or chills. No Upper respiratory symptoms. She has had issues with taking Crestor and body aches however she is not presently on the Crestor. - History of Current Complaint Chief Complaint: UCGeneralIllness Stated Complaint: ACHY Time Seen by Provider: 11/29/19 16:52 Hx Obtained From: Patient Hx Last Menstrual Period: sep 2019 Onset/Duration: Gradual Onset Timing: Intermittent Episodes Lasting: Onset Severity: Mild Current Severity: Mild Pain Intensity: 7 - Allergy/Home Medications Allergies/Adverse Reactions: Allergies Allergy/AdvReac Type Severity Reaction Status Date / Time methotrexate Allergy Hives Verified 11/29/19 16:52 walnuts Allergy Blisters Uncoded 11/29/19 16:52 in Mouth Home Medications: Home Medications Ibuprofen TAB* [Advil TAB*] 200 mg PO Q6H PRN 11/29/19 [History Confirmed ] PMH/Surg Hx/FS Hx/Imm Hx Previously Healthy: Yes Endocrine History: Thyroid Disease, Dyslipidemia Cardiovascular History: Hypertension Respiratory History: Asthma Other History Of: Negative For: HIV, Hepatitis B, Hepatitis C, Anticoagulant Therapy - Surgical History Surgical History: Yes Surgery Procedure, Year, and Place: Uterine Polypectomies, 2010, [facility]. Uterine Polypectomies, 04/20/13, [facility]. tubes in ears - Family History Known Family History: Positive: Cardiac Disease - mother, Hypertension - mother - Social History Occupation: Employed Full-time Lives: With Family Alcohol Use: Daily Alcohol Amount: a few glasses of wine/ day Substance Use Type: Marijuana Substance Use Comment - Amount & Last Used: daily Smoking Status (MU): Light Every Day Tobacco Smoker Type: Cigarettes Amount Used/How Often: ~1/2 PPD Length of Time of Smoking/Using Tobacco: ~1/2 PPD x 22 Years Have You Smoked in the Last Year: Yes When Did the Patient Quit Smoking/Using Tobacco: 2016; restarted smoking AUG 2019 Household Exposure Type: Cigarettes - Immunization History Most Recent Influenza Vaccination: Not the 2015/2016 Season Most Recent Tetanus Shot: 03/30/17 Review of Systems All Other Systems Reviewed And Are Negative: Yes Musculoskeletal: Positive: Myalgia Is Patient Immunocompromised?: No Physical Exam Triage Information Reviewed: Yes Appearance: Well-Appearing, No Pain Distress Vital Signs: Initial Vital Signs Temp 97.5 F 11/29/19 16:54 Pulse 77 11/29/19 16:54 Resp 14 11/29/19 16:54 BP 118/75 11/29/19 16:54 Pulse Ox 100 11/29/19 16:54 Vital Signs Reviewed: Yes Eyes: Positive: Conjunctiva Clear ENT: Positive: Hearing grossly normal, Pharynx normal, TMs normal, Uvula midline Neck: Positive: Supple, Nontender, No Lymphadenopathy Respiratory: Positive: Lungs clear, Normal breath sounds, No respiratory distress, No accessory muscle use Cardiovascular: Positive: RRR, No Murmur, Pulses Normal, Brisk Capillary Refill Musculoskeletal Exam: Normal Neurological Exam: Normal Psychological Exam: Normal Skin Exam: Normal Course/Dx - Course Course Of Treatment: Rapid flu test: Negative I spoke with the patient about following up with her rheumatoid specialist and she is agreeable to doing that. She is to speak with her primary care provider regarding the Crestor. She is comfortable here and in no distress and nontoxic. - Diagnoses Provider Diagnosis: Viral illness Discharge ED - Sign-Out/Discharge Documenting (check all that apply): Patient Departure All imaging exams completed and their final reports reviewed: No Studies - Discharge Plan Condition: Good Disposition: HOME Patient Education Materials: Viral Syndrome (ED) Referrals: Berta Flynn MD [Primary Care Provider] - Additional Instructions: Increase fluids, follow-up with your court advocate as we discussed. - Billing Disposition and Condition Condition: GOOD Disposition: Home - Attestation Statements Provider Attestation: This patient was not seen by me. I was available for consult. Chart reviewed. YOHANA
== END 2019-11-29 17:32 | disposition home or self-care (01) ==
LOC: UCCORT 16:00
DX: B34.9 Viral infection, unspecified (principal); I10 Essential (primary) hypertension; J45.909 Unspecified asthma, uncomplicated; E07.9 Disorder of thyroid, unspecified; F17.210 Nicotine dependence, cigarettes, uncomplicated; Z88.8 Allergy status to other drugs, medicaments and biological substances; Z91.018 Allergy to other foods
CPT/HCPCS: 99211; G0463